=== PATIENT | male | born 1960 | race Caucasian/White ===

== ENCOUNTER 2018-01-22 02:56 | Emergency (ER) | payer SELFPAY ==
[~2018-01-22] VITALS: Ht 182.9 cm; Wt 145.5 kg
[2018-01-22 03:04] VITALS: Ht 182.9 cm; Wt 145.5 kg
[2018-01-22] MEDS ORDERED: [UNRECOGNIZED DRUG - OTHER] (03:08)
[2018-01-22] MEDS ORDERED: CATAPRES0.1 MG (03:08)
[2018-01-22] MEDS ORDERED: GLUCOPHAGE1000 MG PO (03:08)
[2018-01-22 03:37] LABS: BASOPHILS 0.4 % (0-2); EOSINOPHILS 4.8 % (0-7); HEMATOCRIT 43.7 % (42.0-54.0); HEMOGLOBIN 15.1 g/dL (13.5-17.5); IMMATURE GRANULOCYTES 0.2 % (0-5); LYMPHOCYTES 32.1 % (15-50); MCH 30.6 pg (26.0-34.0); MCHC 34.6 g/dL (31.0-37.0); MCV 88.5 fL (80.0-100.0); MEAN PLATELET VOLUME 10.1 fL (7.4-10.4); MONOCYTES 5.9 % (2-11); NEUTROPHILS 56.6 % (40-80); PLATELET COUNT 253 10x3/uL (130-400); RBC 4.94 10x6/uL (4.20-6.10); RDW 13.3 % (11.5-14.5)
[2018-01-22 03:52] LABS: ALBUMIN 3.3 g/dL (3.4-5.0); ALKALINE PHOSPHATASE 113 U/L (46-116); ALT (SGPT) 59 U/L (10-68); CALC OSMOLALITY 285 mosm/kg (275-300); CALCIUM 8.9 mg/dL (8.5-10.1); CARBON DIOXIDE 28.3 mmol/L (21.0-32.0); CHLORIDE - SERUM 100 mmol/L (98-107); CREATININE - SERUM 1.1 mg/dL (0.6-1.3); GLUCOSE 238 mg/dL (74-106); POTASSIUM - SERUM 3.7 mmol/L (3.5-5.1); PROTEIN - SERUM 7.9 g/dL (6.4-8.2); SODIUM 138 mmol/L (136-145); UREA NITROGEN 18 mg/dL (7-18); eGFR NON AFRICAN AMERICAN 73 mL/min (90-120)
[2018-01-22 03:54] LABS: CREATINE KINASE 59 UL (21-232); MAGNESIUM - SERUM 1.7 mg/dL (1.8-2.4)
[2018-01-22 03:55] LABS: APTT 27.8 SECONDS (22.8-39.4); INR 1.08 (0.85-1.17); PROTIME 13.5 SECONDS (11.6-15.0)
[2018-01-22 03:56] LABS: D-DIMER-QUANTITATIVE 0.64 ug/mLFEU (0.20-0.54)
[2018-01-22 03:59] LABS: TROPONIN-I < 0.017 ng/mL (0.000-0.060)
[2018-01-22] MEDS ORDERED: METOPROLOL TART25 MG PO (06:33)
[2018-01-22] MEDS ORDERED: CATAPRES0.1 MG PO (06:33)
[2018-01-22] MEDS ORDERED: ZOLOFT100 MG PO (06:33)
[2018-01-22] MEDS ORDERED: HYDRALAZINE HCL25 MG PO (06:33)
[2018-01-22 06:55] VITALS: BP 133/83
== END 2018-01-22 06:55 | disposition home or self-care (01) ==
LOC: D.ER 02:56
PROVIDERS: Family Medicine
DX: R51 Headache (principal); R74.8 Abnormal levels of other serum enzymes; E11.65 Type 2 diabetes mellitus with hyperglycemia; Z76.0 Encounter for issue of repeat prescription; R06.02 Shortness of breath; I10 Essential (primary) hypertension

== ENCOUNTER 2018-03-18 06:17 | Inpatient (IN) | payer SELFPAY ==
[2018-03-18] VITALS (14 sets, daily range): BP systolic 139–216; BP diastolic 71–133; BMI 46.8
[~2018-03-18] VITALS: Ht 182.9 cm; Wt 146.6 kg
--- NOTE | ~2018-03-18 | HEMODYNAMI ---
PATIENT:ELVA MOSS MEDICAL RECORD: [id number] : 56 LOCATION:[facility] D.2101 ADMISSION DATE: 03/18/18 Generatedon:03/20/201816:45 Patient name: ELVA MOSS Patient #: [id number] SSN: : Date of study: 03/20/2018 Page: Of Hemodynamic Procedure Report Patient Data Patient Demographics Procedure consent was obtained First Name: ELVA Gender: Male Last Name: ISA : 1960 [facility] Initial: GÓMEZ Age: 57 year(s) Patient #: [id number] Race: Unknown Additional ID: [id number] Contact details [address]: [address] [place] [address] State: [place] City: [place] Zip code: [address] Admission Admission Data Admission Date: 03/18/2018 Admission Time: 9:57 Room #: D.2101 Procedure Procedure Types Cath Procedure Diagnostic Procedure LHC LHC w/Coronaries FFR/IVUS Intra-Coronary IVUS Initial Sedation Charges Moderate Sedation up to 15 minutes PCI Procedure Coronary Stent Coronary Stent Initial x2 Procedure Description Procedure Date Procedure Date: 03/20/2018 Procedure Start Time: 16:20 Procedure End Time: 16:41 Procedure Staff Name Function Fiona Garcia RT Scrub Tab Archer RN Technical Administrative Assistant Isaac Gustafson MD Performing Physician Eugenio Galvan RN Nurse Violeta Scruggs RT Monitor Procedure Data Cath Procedure Fluoroscopy Diagnostic fluoroscopy Total fluoroscopy Time: 6.3 time: 6.3 min min Diagnostic fluoroscopy Total fluoroscopy dose: dose: 1498 mGy 1498 mGy Contrast Material Contrast Material Type Amount (ml) Isovue 300 106 Entry Location Entry Primary Successful Side Size Upsize Upsize Entry Closure Ferrer ccessful Closure Location (Fr) 1 (Fr) 2 (Fr) Remarks Device Remarks Radial Right 6 Fr Mechanical artery Short Compression Estimated blood loss: 5 ml Diagnostic catheters Device Type Used For End Catheter Placement DIAGNOSTIC 5FR Super Multi-vessel Torque RBL-TG ([id number]) Angiography Procedure Complications Cardiogenic Shock Procedure Medications Medication Administration Route Dosage 0.9% NaCl I.V. 100 ml/hr Oxygen etCO2 Nasal cannula 4 l/min Heparin Flush Bag added to field 2 bags (1000units/500ml NS) Lidocaine 2% added to field 20 Radial Cocktail added to field 1 syringe (Verapomil 2mg/Nitro 400mcg/Heparin 1500units) Versed I.V. 1 mg Fentanyl I.V. 50 mcg Radial Cocktail I.A. 1 syringe (Verapomil 2mg/Nitro 400mcg/Heparin 1500units) Versed I.V. 1 mg Heparin Bolus I.V. 4000 units Hemodynamics Rest Heart Rate: 92 (bpm) Pressure Samples Time Site Value (mmHg) Purpose Heart Use Rate(bpm) 16:23 LV 80/76,76 Snapshot 102 Snapshots Pre Cath Intra NCS Post Cath Vital Signs Time Heart Resp SPO2 etCO2 NIBP (mmHg) Rhythm Pain Sedation Rate (ipm) (%) (mmHg) Status Level (bpm) 16:12:46 85 35 91 37 153/105(129) NSR 0 (11) 10(A) , No pain 16:17:00 89 32 94 35.5 147/114(126) NSR 0 (11) 10(A) , No pain 16:21:53 89 30 92 27.2 149/116(134) NSR 0 (11) 10(A) , No pain 16:26:07 88 24 92 40.8 153/114(127) NSR 0 (11) 10(A) , No pain 16:30:23 83 26 92 44.6 151/111(132) NSR 0 (11) 10(A) , No pain 16:34:58 83 20 94 37 100/25(62) NSR 0 (11) 10(A) , No pain 16:39:51 84 23 94 18.1 144/106(123) NSR 0 (11) 10(A) , No pain Medications Time Medication Route Dose Verified Delivered Reason Not es Effectiveness by by 16:10:44 0.9% NaCl I.V. 100 Eugenio Eugenio Per physician ml/hr Cole Galvan RN RN 16:11:01 Oxygen etCO2 4 l/min Eugenio Eugenio Per physician Nasal Cole Galvan cannula JIM RN 16:11:10 Heparin Flush added 2 bags Eugenio Eugenio used for Bag to Loralison Galvan procedure (1000units/500ml field RN RN NS) 16:11:21 Lidocaine 2% added 20ml Eugenio Eugenio for local to vial Loralison Galvan anesthetic field RN RN 16:11:32 Radial Cocktail added 1 Eugenio Eugenio used for (Verapomil to syringe Lorigan Cole procedure 2mg/Nitro field RN RN 400mcg/Hepari 16:17:58 Versed I.V. 1 mg Eugenio Eugenio for sedation Cole Galvan RN RN 16:18:06 Fentanyl I.V. 50 mcg Eugenio Eugenio for sedation Cole Galvan RN RN 16:22:03 Radial Cocktail I.A. 1 Eugenio Isaac for (Verapomil syringe Cole Gustafson MD vasodilation 2mg/Nitro RN 400mcg/Hepari 16:22:13 Versed I.V. 1 mg Eugenio Eugenio for sedation Cole Galvan RN RN 16:32:32 Heparin Bolus I.V. 4000 Eugenio Eugenio for units Lorigan Cole anticoagulation RN trust manager Log Time Note 15:35:33 Tab Archer RN sent for patient. Start room use. 15:35:34 Time tracking: Regular hours (M-F 7:00 - 5:00) 15:35:38 Plan of Care:Hemodynamics will remain stable., Cardiac rhythm will remain stable., Comfort level will be maintained., Respiratory function will remain adequate., Patient/ family verbilizes understanding of procedure., Procedure tolerated without complication., Recovers from procedure without complications.. 16:05:39 Patient received from ED to CCL 2 Alert and oriented. Tansferred to table in Supine position. 16:05:40 Correct patient and procedure confirmed by team. 16:05:40 Warm blankets applied, and gavin hugger turned on for patient comfort. 16:05:42 Signed procedure consent form obtained from patient. 16:05:43 ECG and BP/O2 sat monitors applied to patient. 16:10:44 0.9% NaCl 100 ml/hr I.V. was administered by Eugenio Galvan RN; Per physician; 16:11:01 Oxygen 4 l/min etCO2 Nasal cannula was administered by Eugenio Galvan RN; Per physician; 16:11:10 Heparin Flush Bag (1000units/500ml NS) 2 bags added to field was administered by Eugenio Galvan RN; used for procedure; 16:11:21 Lidocaine 2% 20ml vial added to field was administered by Eugenio Galvan RN; for local anesthetic; 16:11:32 Radial Cocktail (Verapomil 2mg/Nitro 400mcg/Heparin 1500units) 1 syringe added to field was administered by Eugenio Galvan RN; used for procedure; 16:11:38 Vital chart was started 16:13:17 Baseline sample Acquired. 16:13:27 Rhythm: sinus tachycardia 16:13:29 Full Disclosure recording started 16:13:35 H&P Date Dictated: 03/20/2018 New H&P dictated by physician.. 16:13:36 Pre-procedure instructions explained to patient. 16:13:37 Pre-op teaching completed and patient verbalized understanding. 16:13:38 Family in waiting room. 16:13:39 Patient NPO since Midnight. 16:13:41 Is the patient allergic to Iodine/contrast media? No. 16:13:42 Was the patient premedicated? No 16:13:44 Is patient on blood thinner?Yes 16:13:47 ACC The patient was administered the following blood thiners within the last 24 hours: ACCPlavix 16:13:49 Patient diabetic? No. 16:13:51 Previous problem with sedation/anesthesia? No ? 16:13:52 Snore? Yes 16:13:53 Sleep apnea? Yes 16:13:54 Deviated septum? No 16:13:55 Opens mouth fully? No 16:13:57 Sticks out tongue? Yes 16:14:03 Airway obstruction? Yes ASTHMA 16:14:08 Dentures? No ? 16:14:12 Pre procedure: right dorsailis pedis pulse 2+ Normal; easily identifiable; not easily obliterated 16:14:14 Pre procedure: left dorsailis pedis pulse 2+ Normal; easily identifiable; not easily obliterated 16:14:16 Patient pain scale 0/10 ?. 16:14:21 IV patent on arrival in left forearm with 0.9% NaCl at [facility]. 16:14:23 Lab results completed and on chart. 16:14:26 Right Radial & Right Groin area was prepped with chlora-prep and draped in sterile fashion 16:14:27 Alarms reviewed by Galindo Villafuerte 16:14: Sharps counted by scrub and verified by R.N. 16::29 Final Timeout: patient, procedure, and site verified with staff and physician. All members of the team are in agreement. 16:: --------ALL STOP TIME OUT------ 16::29 Physician arrived 16:14:31 Right Radial & Right Groin site verified by team. 16:14:34 Physical assessment completed. ASA score P 2 - A patient with mild systemic disease as per Isaac Gustafson MD. 16:14:38 Sedation plan: IV Moderate Sedation Medication:Versed, Fentanyl 16:14:41 Use device set Radial Dx or PCI 16:14:42 ACIST Syringe (23976) opened to sterile field. 16:14:43 DIAGNOSTIC WIRE .035 260cm J wire (330128) opened to sterile field. 16:14:43 Bag Decanter (2002S) opened to sterile field. 16:14:43 Medline Cath Pack ([id number]) opened to sterile field. 16:14:44 ACIST Manifold (76009) opened to sterile field. 16:14:44 ACIST Hand Control (13941) opened to sterile field. 16:14:45 MBrace Wrist Support ([id number]) opened to sterile field. 16:14:45 Tegaderm 4 x 4 (1626W) opened to sterile field. 16:14:47 SHEATH 6FR Slender (79-9190) opened to sterile field. 16:17:58 Versed 1 mg I.V. was administered by Eugenio Galvan RN; for sedation; 16:18:06 Fentanyl 50 mcg I.V. was administered by Eugenio Galvan RN; for sedation; 16:20:35 Procedure started. 16:20:38 Zero performed for pressure channel P1 16:20:55 Local anesthetic to right radial artery with Lidocaine 2% by Isaac Gustafson MD.INITIAL ACCESS ONLY 16:21:00 A 6 Fr Short sheath was inserted into the Right Radial artery 16:21:48 A DIAGNOSTIC 5FR Super Torque RBL-TG ([id number]) was advanced over the wire and used for Multi-vessel Angiography. 16:22:03 Radial Cocktail (Verapomil 2mg/Nitro 400mcg/Heparin 1500units) 1 syringe I.A. was administered by Isaac Gustafson MD; for vasodilation; 16:22:13 Versed 1 mg I.V. was administered by Eugenio Galvan RN; for sedation; 16:23:45 LV hemodynamics recorded. 16:23:46 LV gram done using MCCABE 16:23:48 Injector settings: Ml/sec: 5, Volume: 15, 16:23:56 EF : 30 % 16:24:43 RCA angiography performed. 16:24:50 Injector settings: Ml/sec: 3, Volume: 6, 16:24:56 Catheter removed. 16:26:09 GUIDE 6FR XBLAD 3.5 catheter ([id number]) opened to sterile field. 16:26:34 6 Fr XBLAD 3.5 guide catheter was inserted over the wire 16:27:59 LCA angiography performed. 16:28:02 Injector settings: Ml/sec: 3, Volume: 6, 16:29:11 CHOICE PT Extra Support 182cm wire ([id number]) opened to sterile field. 16:29:12 INFLATOR Merit BasixCompak (AK3189) opened to sterile field. 16:30:19 CHOICE PT wire advanced. 16:30:20 Wire advanced across lesion. 16:30:21 IVUS catheter advanced over wire. 16:31:43 IVUS pass to LAD lesion performed. 16:31:47 IVUS catheter removed over wire. 16:32:32 Heparin Bolus 4000 units I.V. was administered by Eugenio Galvan RN; for anticoagulation; 16:32:49 Place stent Inflation Number: 1 A JILL RX 2.75 x 38 stent ([id number]) was prepped and advanced across the Prox LAD. The stent was deployed at 21 NELDA for 0:10 (min:sec). 16:34:22 Wire redirected to LCX. 16:34:34 Stent catheter was removed intact over wire. 16:35:43 Place stent Inflation Number: 1 A JILL RX 2.5 x 15 stent ([id number]) was prepped and advanced across the Mid CX. The stent was deployed at 17 NELDA for 0:10 (min:sec). 16:37:11 Stent catheter was removed intact over wire. 16:37:12 Wire removed. 16:37:13 Guide catheter removed. 16:37:19 TR BAND Large ([id number]) opened to sterile field. 16:38:52 Sheath removed intact; hemostasis achieved with Mechanical Compression to the Right Radial artery. 16:38:53 Procedure ended.(Physican Out) 16:39:02 Fluoroscopy time 06.30 minutes. 16:39:15 Fluoroscopy dose: 1498 mGy 16:39:15 Flurop Dose total: 1498 16:39:26 Contrast amount:Isovue 300 106ml. 16:39:56 TR band inflated with 10cc of air. 16:39:57 Insertion/operative site no bleeding no hematoma. 16:40:10 Post Procedure Pulses reassessed and unchanged 16:40:13 Post procedure rhythm: unchanged. 16:40:15 Estimated blood loss: 5 ml 16:40:17 Patient needs reinforcement of post procedure teaching. 16:40:17 Post procedure instruction explained to patient.Patient verbalizes understanding. 16:40:31 Procedure type changed to Cath procedure, Diagnostic procedure, LHC, LHC w/Coronaries, FFR/IVUS, Intra-Coronary IVUS Initial, Sedation Charges, Moderate Sedation up to 15 minutes, PCI procedure, Coronary Stent, Coronary Stent Initial x2 16:40:32 Procedure and supply charges have been captured, reviewed, submitted and are correct. 16:40:44 Procedure Complication : Cardiogenic Shock 16:40:52 See physician's report for complete and final results. 16:40:52 Vital chart was stopped 16:41:00 Report given to [facility]. 16:41:03 Patient transfered to [facility] with Stretcher. 16:41:04 Full Disclosure recording stopped 16:41:04 Procedure ended. 16:41:12 ACC-PCI Only Patient was given prescriptions, or instructed by Isaac Gusatfson MD to start/continue the following medications upon discharge: Plavix 16:41:13 End room use (Document Last) Intervention Summary Intervention Notes Time ActionType Lesion and Equipment Used Action# Pressure Duration Attributes 16:32:[address] Place stent Prox LAD JILL RX 2.75 x 1 21 00:10 38 stent ([id number]) 16:35:43 Place stent Mid CX JILL RX 2.5 x 1 17 00:10 15 stent ([id number]) Device Usage Item Name Manufacture Quantity Catalog Number Hospital Part Current M inimal Lot# / Charge Number Stock Stock Serial# Code ACIST Syringe Acist 1 81521 280691 184125 939238 2 0 (86695) Medical Systems Inc Medline Cath Medline 1 [id number] 375867 88088 606578 5 Pack ([id number]) Bag Decanter Microtek 1 2001S 091107 33948 598206 5 (2001S) Medical Inc. DIAGNOSTIC St [place] 1 131802 710736 950592 311575 3 0 WIRE .035 260cm J wire (929024) ACIST Hand Acist 1 40634 729001 832118 747150 5 Control Medical (58446) Systems Inc ACIST Manifold Acist 1 25142 552820 919336 521037 5 (64133) Medical Systems Inc Tegaderm 4 x 4 3M 1 1626W 322791 529126 990126 5 (1626W) MBrace Wrist Advanced 1 140-0250-00 700044 49484 127348 5 Support Vascular ([id number]) Dynamics SHEATH 6FR Terumo 1 [id number] 156464 646560 533871 5 Slender (80-1060) DIAGNOSTIC 5FR Cardinal 1 [id number] 814881 123417 5 Super Torque Health RBL-TG ([id number]) GUIDE 6FR Cardinal 1 [id number] 488772 379200 413204 1 0 XBLAD 3.5 Health catheter (69922609) CHOICE PT Freeborn 1 [id number] 205300 319579 646478 5 Extra Support Scientific 182cm wire ([id number]) INFLATOR Merit Merit 1 SC3965 924287 058861 205122 1 5 ON DEMAND Microelectronics (LM5330) JILL RX 2.75 x Medtronic 1 [id number] 139024 4857893 599807 5 [id number] 38 stent ([id number]) JILL RX 2.5 x Medtronic 1 [id number] 676259 4526228 459548 5 [id number] 15 stent ([id number]) TR BAND Large Terumo 1 [id number] 135931 163320 173674 4 0 ([id number]) Signature Audit [place] Stage Time Signature Unsigned Intra-Procedure 03/20/2018 Violeta Scruggs 4:45:20 PM RT(R) Signatures Monitor : Violeta Scruggs RT Signature : Date : Time : [facility] [address] [place] [address]
--- NOTE | ~2018-03-18 | HEMODYNAMI ---
PATIENT:ELVA MOSS MEDICAL RECORD: [id number] : 56 LOCATION:[facility] D.2102 ADMISSION DATE: 03/18/18 Generatedon:03/21/201812:47 Patient name: ELVA MOSS Patient #: [id number] SSN: : Date of study: 03/21/2018 Page: Of Hemodynamic Procedure Report Patient Data Patient Demographics Procedure consent was obtained First Name: ELVA Gender: Male Last Name: ISA : 1960 [facility] Initial: GÓMEZ Age: 57 year(s) Patient #: [id number] Race: Unknown Additional ID: [id number] Contact details Address: [address] [place] [address] State: [place] City: [place] Zip code: [address] Past Medical History Allergies: No known allergies Admission Admission Data Admission Date: 03/18/2018 Admission Time: 9:57 Room #: D.2102 Procedure Procedure Types Cath Procedure PCI Procedure Coronary Stent Coronary Stent Initial Procedure Description Procedure Date Procedure Date: 03/21/2018 Procedure Start Time: 12:36 Procedure End Time: 12:45 Procedure Staff Name Function Isaac Gustafson MD Performing Physician Eugenio Galvan RN Nurse Eliseo Zamora RT Monitor Eliseo Zamora RT Scrub Procedure Data Cath Procedure Fluoroscopy Diagnostic fluoroscopy Total fluoroscopy Time: 2.3 time: 2.3 min min Diagnostic fluoroscopy Total fluoroscopy dose: 491 dose: 491 mGy mGy Contrast Material Contrast Material Type Amount (ml) Isovue 300 36 Entry Location Entry Primary Successful Side Size Upsize Upsize Entry Closure Ferrer ccessful Closure Location (Fr) 1 (Fr) 2 (Fr) Remarks Device Remarks Radial Right 6 Fr Mechanical artery Short Compression Procedure Complications No complications Procedure Medications Medication Administration Route Dosage 0.9% NaCl I.V. 100 ml/hr Oxygen etCO2 Nasal cannula 4 l/min Heparin Flush Bag added to field 2 bags (1000units/500ml NS) Lidocaine 2% added to field 20 Radial Cocktail added to field 1 syringe (Verapomil 2mg/Nitro 400mcg/Heparin 1500units) Versed I.V. 2 mg Fentanyl I.V. 100 mcg Radial Cocktail I.A. 1 syringe (Verapomil 2mg/Nitro 400mcg/Heparin 1500units) Heparin Bolus I.V. 4000 units Hemodynamics Rest Heart Rate: 82 (bpm) Snapshots Pre Cath Intra NCS Post Cath Vital Signs Time Heart Resp SPO2 etCO2 NIBP (mmHg) Rhythm Pain Sedation Rate (ipm) (%) (mmHg) Status Level (bpm) 12:08:49 82 32 93 22.6 154/103(123) NSR 0 (11) 10(A) , No pain 12:13:06 83 23 85 15.1 154/120(137) NSR 0 (11) 10(A) , No pain 12:17:24 88 23 82 0 149/121(134) NSR 0 (11) 10(A) , No pain 12:21:40 83 30 94 36.3 152/120(138) NSR 0 (11) 10(A) , No pain 12:26:01 83 26 94 31.7 159/138(147) NSR 0 (11) 10(A) , No pain 12:30:21 81 26 94 40 160/116(133) NSR 0 (11) 10(A) , No pain 12:34:41 84 20 84 0.7 159/116(141) NSR 0 (11) 9(A) , No pain 12:38:59 85 26 93 21.9 147/106(127) NSR 0 (11) 9(A) , No pain 12:43:15 83 24 92 12 166/108(120) NSR 0 (11) 9(A) , No pain Medications Time Medication Route Dose Verified Delivered Reason Not es Effectiveness by by 12:09:19 0.9% NaCl I.V. 100 Eugenio Eugenio Per physician ml/hr Cole Galvan RN RN 12:09:32 Oxygen etCO2 4 l/min Eugenio Eugenio Per physician Nasal Cole Galvan cannula RN RN 12:09:43 Heparin Flush added 2 bags Eugenio Eugenio used for Bag to Cole Galvan procedure (1000units/500ml [facility] RN RN NS) 12:09:56 Lidocaine 2% added 20ml Eugenio Eugenio for local to vial Lorigan Lorigan anesthetic field FERNANDEZ RN 12:29:22 Radial Cocktail added 1 Eugenio Eugenio used for (Verapomil to syringe Cole Galvan procedure 2mg/Nitro field FERNANDEZ RN 400mcg/Heparin 1500units) 12:30:53 Versed I.V. 2 mg Eugenio Eugenio for sedation Cole Galvan RN RN 12:31:00 Fentanyl I.V. 100 mcg Eugenio Eugenio for sedation Cole Galvan RN RN 12:37:21 Radial Cocktail I.A. 1 Eugenio Isaac for (Verapomil syringe Cole Gustafson MD vasodilation 2mg/Nitro RN 400mcg/Heparin 1500units) 12:39:30 Heparin Bolus I.V. 4000 Eugenio Eugenio for units Cole Galvan anticoagulation RN [employer] law clerk Log Time Note 11:40:24 Eliseo Zamora RT(R) sent for patient. Start room use. 11:55:17 Time tracking: Regular hours (M-F 7:00 - 5:00) 11:55:21 Plan of Care:Hemodynamics will remain stable., Cardiac rhythm will remain stable., Comfort level will be maintained., Respiratory function will remain adequate., Patient/ family verbilizes understanding of procedure., Procedure tolerated without complication., Recovers from procedure without complications.. 12:05:03 Patient received from Med II to CCL 2 Alert and oriented. Tansferred to table in Supine position. 12:05:05 Warm blankets applied, and gavin hugger turned on for patient comfort. 12:05:05 Correct patient and procedure confirmed by team. 12:05:07 Signed procedure consent form obtained from patient. 12:05:08 ECG and BP/O2 sat monitors applied to patient. 12:07:44 Vital chart was started 12:07:45 Baseline sample Acquired. 12:07:48 Rhythm: sinus rhythm 12:07:49 Full Disclosure recording started 12:08:03 H&P Date Dictated: 03/19/2018 Within 30 days and on chart.. 12:08:05 Pre-procedure instructions explained to patient. 12:08:05 Pre-op teaching completed and patient verbalized understanding. 12:08:11 Family unavailable. 12:08:13 Patient NPO since Midnight. 12:08:19 Patient allergic to No known allergies 12:08:21 Is the patient allergic to Iodine/contrast media? No. 12:08:35 Is patient on blood thinner?Yes 12:08:38 ACC The patient was administered the following blood thiners within the last 24 hours: ACCPlavix 12:09:19 0.9% NaCl 100 ml/hr I.V. was administered by Eugenio Galvan RN; Per physician; 12:09:32 Oxygen 4 l/min etCO2 Nasal cannula was administered by Eugenio Galvan RN; Per physician; 12:09:43 Heparin Flush Bag (1000units/500ml NS) 2 bags added to field was administered by Eugenio Galvan RN; used for procedure; 12:09:52 Patient diabetic? No. 12:09:56 Lidocaine 2% 20ml vial added to field was administered by Eugenio Galvan RN; for local anesthetic; 12:10:20 If diabetic: On Metformin? No 12:10:21 ----Pre-sedation anethsthesia assessment.---- 12:10:23 Previous problem with sedation/anesthesia? No ? 12:10:24 Snore? Yes 12:10:25 Sleep apnea? Yes 12:10:27 Deviated septum? No 12:10:28 Opens mouth fully? Yes 12:10:29 Sticks out tongue? Yes 12:10:37 Airway obstruction? Yes ASTHMA\ 12:10:41 Dentures? No ? 12:10:46 Pre procedure: right dorsailis pedis pulse 2+ Normal; easily identifiable; not easily obliterated 12:10:49 Modified Emir's test Ulnar < 7 seconds 12:10:57 Patient pain scale 0/10 ?. 12:11:11 IV patent on arrival in left antecubital with 0.9% NaCl at 10ml/hr. 12:11:17 Lab results completed and on chart. 12:11:20 Right Radial & Right Groin area was prepped with chlora-prep and draped in sterile fashion 12:11:22 Alarms reviewed by RConstantin N. 12:11:22 Sharps counted by scrub and verified by R.N. 12:28:29 --------ALL STOP TIME OUT------ 12:28:30 Final Timeout: patient, procedure, and site verified with staff and physician. Fire safety check completed. All members of the team are in agreement. 12:28:31 Right Radial & Right Groin site verified by team. 12:28:35 Physical assessment completed. ASA score P 2 - A patient with mild systemic disease as per Isaac Gustafson MD. 12:28:38 Sedation plan: IV Moderate Sedation Medication:Versed, Fentanyl 12:29:22 Radial Cocktail (Verapomil 2mg/Nitro 400mcg/Heparin 1500units) 1 syringe added to field was administered by Eugenio Galvan RN; used for procedure; 12:30:53 Versed 2 mg I.V. was administered by Eugenio Galvan RN; for sedation; 12:31:00 Fentanyl 100 mcg I.V. was administered by Eugenio Galvan RN; for sedation; 12:31:12 Zero performed for pressure channel P1 12:31:21 Use device set Radial Dx or PCI 12:31:22 Medline Cath Pack ([id number]) opened to sterile field. 12:31:23 ACIST Syringe (19516) opened to sterile field. 12:31:23 Bag Decanter (2002S) opened to sterile field. 12:31:23 DIAGNOSTIC WIRE .035 260cm J wire (039038) opened to sterile field. 12:31:24 ACIST Hand Control (01760) opened to sterile field. 12:31:24 ACIST Manifold (50563) opened to sterile field. 12:31:25 Tegaderm 4 x 4 (1626W) opened to sterile field. 12:31:25 MBrace Wrist Support ([id number]) opened to sterile field. 12:31:26 NEEDLE Cook 21G 4cm Radial (M63729) opened to sterile field. 12:31:27 TR BAND Standard ([id number]) opened to sterile field. 12:31:28 SHEATH 6FR Slender (801060) opened to sterile field. 12:35:52 Procedure started. 12:36:11 Local anesthetic to right radial artery with Lidocaine 2% by Isaac Gustafson MD.INITIAL ACCESS ONLY 12:36:22 A 6 Fr Short sheath was inserted into the Right Radial artery 12:37:21 Radial Cocktail (Verapomil 2mg/Nitro 400mcg/Heparin 1500units) 1 syringe I.A. was administered by Isaac Gustafson MD; for vasodilation; 12:37:25 GUIDE 6FR AR 2.0 catheter ([id number]) opened to sterile field. 12:37:25 CHOICE PT Extra Support 182cm wire ([id number]) opened to sterile field. 12:37:26 INFLATOR Merit José MiguelCompak (EL9738) opened to sterile field. 12:37:36 6 Fr AR 2 guide catheter was inserted over the wire 12:37:40 CPTES wire advanced. 12:39:30 Heparin Bolus 4000 units I.V. was administered by Eugenio Galvan RN; for anticoagulation; 12:42:34 Place stent Inflation Number: 1 A JILL RX 3.0 x 18 stent ([id number]) was prepped and advanced across the Mid RCA. The stent was deployed at 17 NELDA for 0:10 (min:sec). 12:43:24 Stent catheter was removed intact over wire. 12:43:25 Wire removed. 12:43:28 Guide catheter removed. 12:43:53 Contrast amount:Isovue 300 36ml. 12:43:59 Sheath removed intact; hemostasis achieved with Mechanical Compression to the Right Radial artery. 12:44:01 Procedure ended.(Physican Out) 12:44:09 Fluoroscopy time 02.30 minutes. 12:44:14 Flurop Dose total: 491 12:44:15 Fluoroscopy dose: 491 mGy 12:44:16 Sharps counted by scrub and verified by R.N. 12:44:18 TR band inflated with 12cc of air. 12:44:40 Post right radial artery:stable 12:44:42 Post Procedure Pulses reassessed and unchanged 12:44:48 Post procedure rhythm: sinus rhythm 12:44:59 Post procedure instruction explained to patient.Patient verbalizes understanding. 12:45:02 Procedure and supply charges have been captured, reviewed, submitted and are correct. 12:45:14 Procedure Complication : No complications 12:45:17 Vital chart was stopped 12:45:17 See physician's report for complete and final results. 12:45:19 Report given to PCU. 12:45:32 Patient transfered to PCU with Bed. 12:45:34 Procedure ended. 12:45:34 Full Disclosure recording stopped 12:45:42 ACC-PCI Only Patient was given prescriptions, or instructed by Isaac Gustafson MD to start/continue the following medications upon discharge: Plavix 12:45:43 End room use (Document Last) Intervention Summary Intervention Notes Time ActionType Lesion and Equipment Used Action# Pressure Duration Attributes 12:42:34 Place stent Mid RCA JILL RX 3.0 x 1 17 00:10 18 stent ([id number]) Device Usage Item Name Manufacture Quantity Catalog Number Hospital Part Current M inimal Lot# / Charge Number Stock Stock Serial# Code Medline Cath Medline 1 [id number] 12983 767490 5 Pack ([id number]) ACIST Syringe Acist 1 41358 220655 479416 697712 2 0 (77899) Medical Systems Inc Bag Decanter Microtek 1 2001S 691126 87773 799388 5 (2001S) Medical Inc. DIAGNOSTIC [facility] [place] 1 450290 163436 957402 050383 3 0 WIRE .035 260cm J wire (202011) ACIST Hand Acist 1 60340 133669 547864 080512 5 Control Medical (12127) Systems Inc ACIST Manifold Acist 1 19875 453671 791347 938464 5 (79649) Medical Systems Inc Tegaderm 4 x 4 3M 1 1626W 789194 753389 645284 5 (1626W) MBrace Wrist Advanced 1 140-0250-00 118812 45137 299070 5 Support Vascular ([id number]) Dynamics NEEDLE Cook Union Medical 1 M14705 315509 871231 572754 5 21G 4cm Radial (R82246) TR BAND Terumo 1 [id number] 318441 389812 037239 4 0 Standard ([id number]) SHEATH 6FR Terumo 1 [id number] 707602 951024 579100 5 Slender (80-1060) GUIDE 6FR AR Medtronic 1 [id number] 104405 40552 031631 1 2.0 catheter ([id number]) CHOICE PT [place] 1 [id number] 623657 431767 371675 5 Extra Support Scientific 182cm wire ([id number]) INFLATOR Merit Merit 1 SA9287 719795 580004 436978 1 5 Clementia PharmaceuticalstxIlink Systems [facility] (IJ6619) JILL RX 3.0 x Medtronic 1 [id number] 154679 1239082 885900 5 [id number] 18 stent ([id number]) Signature Audit [place] Stage Time Signature Unsigned Intra-Procedure 03/21/2018 Eliseo TIRADO(Josh) 12:47:25 PM Signatures Monitor : Eliseo Zamora RT Signature : Date : Time : [place] [id number] [facility]901
[~2018-03-18 06:17] MED LIST: CATAPRES0.1 MG; CATAPRES0.1 MG PO; GLUCOPHAGE1000 MG PO; HYDRALAZINE HCL25 MG PO; METOPROLOL TART25 MG PO; ZOLOFT100 MG PO; [UNRECOGNIZED DRUG - OTHER]
[2018-03-18 06:46] LABS: ALBUMIN 3.3 g/dL (3.4-5.0); ALKALINE PHOSPHATASE 127 U/L (46-116); ALT (SGPT) 76 U/L (10-68); BILIRUBIN - TOTAL 0.46 mg/dL (0.2-1.3); CALC OSMOLALITY 283 mosm/kg (275-300); CALCIUM 8.8 mg/dL (8.5-10.1); CARBON DIOXIDE 27.4 mmol/L (21.0-32.0); CHLORIDE - SERUM 102 mmol/L (98-107); CREATININE - SERUM 1.4 mg/dL (0.6-1.3); POTASSIUM - SERUM 4.6 mmol/L (3.5-5.1); PROTEIN - SERUM 7.4 g/dL (6.4-8.2); SODIUM 139 mmol/L (136-145); UREA NITROGEN 21 mg/dL (7-18); eGFR NON AFRICAN AMERICAN 55 mL/min (90-120)
[2018-03-18 06:48] LABS: GLUCOSE 158 mg/dL (74-106)
[2018-03-18 06:57] LABS: CKMB 4.9 U/L (0.0-3.6); CREATINE KINASE 189 UL (21-232); PRO BNP 2815 pg/mL (0-125); TROPONIN-I 0.038 ng/mL (0.000-0.060)
[2018-03-18] MEDS ORDERED: VITAMIN D5000 UNIT PO (06:58)
[2018-03-18] MEDS ORDERED: SYNTHROID50 MCG PO (06:58)
[2018-03-18] MEDS ORDERED: VENTOLIN HFA18 GM INJ (06:59)
[2018-03-18] MEDS ORDERED: ALBUTEROL1.25 MG/3 INH (06:59)
[2018-03-18] MEDS ORDERED: BAYER CHEWABLE81 MG PO (06:59)
[2018-03-18] MEDS ORDERED: LIPITOR20 MG PO (07:00)
[2018-03-18] MEDS ORDERED: ZESTRIL40 MG PO (07:00)
[2018-03-18 07:02] LABS: APTT 27.5 SECONDS (22.8-39.4); INR 1.2 (0.85-1.17); PROTIME 14.6 SECONDS (11.6-15.0)
--- NOTE | 2018-03-18 07:03 | NUR ---
REPORT GIVEN TO JIM BETANCOURT
[2018-03-18 07:22] LABS: KETONE - SERUM NEGATIVE (NEGATIVE)
[2018-03-18 07:39] LABS: MAGNESIUM - SERUM 2.1 mg/dL (1.8-2.4)
--- NOTE | 2018-03-18 07:40 | NUR ---
VERBAL ORDER FROM DR. LEES TO INSERT FITCH CATHETER FOR STRICT I & O ON PT. PATIENT REFUSED FITCH CATHETER. DR. LEES NOTIFIED.
[2018-03-18 07:43] LABS: BASOPHILS 0.6 % (0-2); EOSINOPHILS 2.4 % (0-7); HEMATOCRIT 46.5 % (42.0-54.0); HEMOGLOBIN 15.1 g/dL (13.5-17.5); IMMATURE GRANULOCYTES 0.2 % (0-5); LYMPHOCYTES 25.2 % (15-50); MCH 29.4 pg (26.0-34.0); MCHC 32.5 g/dL (31.0-37.0); MCV 90.5 fL (80.0-100.0); MEAN PLATELET VOLUME 10.4 fL (7.4-10.4); MONOCYTES 8.2 % (2-11); NEUTROPHILS 63.4 % (40-80); RBC 5.14 10x6/uL (4.20-6.10); RDW 14.6 % (11.5-14.5); WBC 12.2 10x3/uL (4.8-10.8)
[2018-03-18 07:52] LABS: PLATELET COUNT 368 10x3/uL (130-400)
[2018-03-18 08:01] LABS: THYROID STIMULATING HORMONE 4.99 uIU/mL (0.36-3.74)
--- NOTE | 2018-03-18 11:12 | NUR ---
PT TRANSPORTED VIA STRETCHER TO CT.
--- NOTE | 2018-03-18 11:30 | NUR ---
PT RETURNED FROM CT.
--- NOTE | 2018-03-18 11:34 | NUR ---
URINE COLLECTED BY NURSE AND SENT TO LAB.
[2018-03-18 12:17] LABS: COLOR COLORLESS (YELLOW)
[2018-03-18 12:18] LABS: APPEARANCE CLEAR (CLEAR); BILIRUBIN NEGATIVE (NEGATIVE); GLUCOSE NEGATIVE (NEGATIVE); KETONE NEGATIVE (NEGATIVE); NITRITE NEGATIVE (NEGATIVE); PROTEIN NEGATIVE (NEGATIVE); UROBILINOGEN NORMAL (NORMAL)
--- NOTE | 2018-03-18 16:49 | NUR ---
PT ARRIVED AT 1515 VIA WC FROM ER. IV GTT OF BUMEX IS INFUSING AT 5/HR. O2 AT 2L PER NC. SEE ASSESSMENT FOR FURTHER EVAL.
--- NOTE | 2018-03-18 19:00 | NUR ---
ALERT AWAKE ORIENTED X3. DENIES PAIN OR ANY NEEDS. IV IN L AC WITH BUMEX INFUSING AT 5ML/HR. EMPTIED URINAL'S OF 1500CC PALE YELLOW URINE. BED IS LOW WITH CALL LIGHT IN REACH.
--- NOTE | 2018-03-18 22:30 | NUR ---
GAVE DIABETIC SNACK OF ISIAH CRACKERS, PEANUT BUTTER AND MILK.
[2018-03-19 04:55] VITALS: BP 143/102
[2018-03-19 05:32] LABS: BASOPHILS 0.5 % (0-2); EOSINOPHILS 3.5 % (0-7); HEMATOCRIT 43.7 % (42.0-54.0); HEMOGLOBIN 13.8 g/dL (13.5-17.5); IMMATURE GRANULOCYTES 0.2 % (0-5); LYMPHOCYTES 19.9 % (15-50); MCH 28.8 pg (26.0-34.0); MCHC 31.6 g/dL (31.0-37.0); MCV 91.2 fL (80.0-100.0); MEAN PLATELET VOLUME 10.2 fL (7.4-10.4); MONOCYTES 8.2 % (2-11); NEUTROPHILS 67.7 % (40-80); PLATELET COUNT 352 10x3/uL (130-400); RBC 4.79 10x6/uL (4.20-6.10); RDW 14.5 % (11.5-14.5); WBC 10.2 10x3/uL (4.8-10.8)
[2018-03-19 05:55] LABS: ALBUMIN 3.2 g/dL (3.4-5.0); BILIRUBIN - TOTAL 0.49 mg/dL (0.2-1.3); CALCIUM 8.3 mg/dL (8.5-10.1); CARBON DIOXIDE 31.5 mmol/L (21.0-32.0); CREATININE - SERUM 1.4 mg/dL (0.6-1.3); MAGNESIUM - SERUM 1.9 mg/dL (1.8-2.4); PHOSPHOROUS 5.4 mg/dL (2.5-4.9); TROPONIN-I 0.03 ng/mL (0.000-0.060)
[2018-03-19 06:04] LABS: ANION GAP 12.7 mmol/L (8-16); POTASSIUM - SERUM 3.2 mmol/L (3.5-5.1)
--- NOTE | 2018-03-19 06:20 | NUR ---
ADMIN SCHED MEDS. WHILE HE WAS ASLEEP I OBSERVED SEVERAL EPISODES OF SLEEP APNEA. STATED HE IS AWARE OF THIS.
--- NOTE | 2018-03-19 07:00 | NUR ---
RECEIVED REPORT. ASSUMED CARE OF PATIENT. SITTING UP TO SIDE FO THE BED. RESP EVEN AND UNLABORED. PSORIASIS TO LOWER EXTREMITIES AND ELBOWS NOTED. NO DISTRESS. FRESH ICE WATER PROVIDED.
[2018-03-19 08:33] VITALS: BP 140/96
--- NOTE | 2018-03-19 11:20 | NUR ---
FSBS 147. NO INSULIN REQUIRED PER SLIDING SCALE. NO DISTRESS.
[2018-03-19 12:20] VITALS: BP 141/76
--- NOTE | 2018-03-19 13:12 | NUR ---
THIS PRIVATE DETECTIVE WENT TO PATIENT TO ADMINISTER HI-DOSE PLAVIX. PATIENT STATED HE NEEDS TO THINK ABOUT HAVING THAT HEART CATH DONE. PATIENT REFUSED PLAVIX AND STATES HE DOES NOT WANT ANYTHING TO DO WITH THE HEART CATH PROCEDURE UNTIL HE HAS HAD TIME TO THINK ABOUT. PLAVIX RETURNED TO THE [facility]. CONSENTS ARE ON THE CHART BUT NOT SIGNED. FLU SWAB COLLECTED FROM PATIENT AT THIS TIME.
--- NOTE | 2018-03-19 13:27 | NUR ---
MEDICATED FOR K+3.2 AT THIS TIME.
[2018-03-19 15:18] VITALS: BP 146/71
--- NOTE | 2018-03-19 16:08 | NUR ---
FSBS 125. NO INSULIN PER SLIDING SCALE.
--- NOTE | 2018-03-19 16:45 | NUR ---
REFUSED SCD'S PER MORALES/RN
--- NOTE | 2018-03-19 17:30 | NUR ---
PATIENT SITTING TO SIDE OF BED. REQUESTED 2ND MEAL TRAY. MEAL TRAY ORDERED FROM DIETARY. NO DISTRESS. CALL LIGHT WITHIN REACH.
--- NOTE | 2018-03-19 19:50 | NUR ---
INITIAL ASSESSMENT COMPLETED - PT A/0 X4, AT BEDISDE. PT SOB WITH SHALLOW BREATHS. 02 ON 2L VIA NC. VSS. NO PAIN OR DISCOMFORT NOTED AT THIS TIME. WCTM AND FOLLOW POC. CL IN REACH, SR UP X2, BED IN LOW POSITION.
[2018-03-19 20:00] VITALS: BP 115/96
[2018-03-20] VITALS: BP 135/85
[2018-03-20 04:00] VITALS: BP 151/96
--- NOTE | 2018-03-20 04:28 | NUR ---
RESUMING PT CARE - PT RESTING IN BED WITH EYES CLOSED. RR EVEN AND UL, NO S/S OF DISTRESS. BUMEX DRIP INFUSING AT 5ML/HR INTO L AC. NO NEEDS NOTED AT THIS TIME. VSS. CL IN REACH, SR UPX2, BED IN LOWEST POSITION. WILL CONTINUE TO ASSESS NEEDS.
[2018-03-20 04:42] LABS: BASOPHILS 0.3 % (0-2); EOSINOPHILS 2.5 % (0-7); HEMATOCRIT 44.8 % (42.0-54.0); HEMOGLOBIN 14.1 g/dL (13.5-17.5); IMMATURE GRANULOCYTES 0.1 % (0-5); LYMPHOCYTES 23.5 % (15-50); MCHC 31.5 g/dL (31.0-37.0); MEAN PLATELET VOLUME 10.1 fL (7.4-10.4); MONOCYTES 9.7 % (2-11); NEUTROPHILS 63.9 % (40-80); PLATELET COUNT 323 10x3/uL (130-400); RBC 4.87 10x6/uL (4.20-6.10); RDW 14.4 % (11.5-14.5); WBC 10.1 10x3/uL (4.8-10.8)
[2018-03-20 05:02] LABS: ANION GAP 9.8 mmol/L (8-16); CALCIUM 8.8 mg/dL (8.5-10.1); CARBON DIOXIDE 37.3 mmol/L (21.0-32.0); CREATININE - SERUM 1.5 mg/dL (0.6-1.3); POTASSIUM - SERUM 3.1 mmol/L (3.5-5.1)
--- NOTE | 2018-03-20 07:51 | NUR ---
RESUMING PT CARE, PT LAYING IN BED, DR AT BEDSIDE ASSESSING PT. CALL LIGHT IN REACH, WILL CONTINUE TO MONITOR AND FOLLOW PLAN OF CARE.
--- NOTE | 2018-03-20 07:53 | NUR ---
PT LAYING IN BED WITH EYES CLOSED, RESPIRATIONS EVEN AND UNLABORED. CALL LIGHT IN REACH, WILL CONTINUE TO MONITOR AND FOLLOW PLAN OF CARE.
[2018-03-20 08:58] VITALS: BP 170/104
--- NOTE | 2018-03-20 10:49 | NUR ---
RESTING QUIETLY. NO APPARENT DISTRESS. WILL CONTINUE TO MONITOR.
[2018-03-20 11:55] VITALS: BP 145/80
[2018-03-20 15:55] VITALS: BP 137/93
--- NOTE | 2018-03-20 19:45 | NUR ---
INITIAL ASSESSMENT COMPLETED - NO C/O PAIN OR DISCOMFORT. A/0X4, SLIGHTLY LETHARGIC PT IS 2 HOURS POST CATH. TR BAND FULLY INFLATED ON R WRIST. PULLED 3 ML OF AIR OUT, WILL RECHECK IN 30 MIN. RR EVEN AND UL, NO S/S OF DISTRESS. WCTM AND FOLLOW POC. SR UP X2, CL IN REACH, BED IN LOWEST POSITION.
[2018-03-20 20:00] VITALS: BP 153/102
--- NOTE | 2018-03-20 20:30 | NUR ---
NO BLEEDING NOTED AROUND R RADIAL SITE WHERE CATH WAS INSERTED. RELEASED 3 MORE ML OF AIR, WILL RECHECK SITE IN 30 MIN. NO NEEDS NOTED AT THIS TIME. EDUCATED PT THAT HE WILL BE NPO AFTER MIDNIGHT. PT VERBALIZED UNDERSTANDING. CL IN REACH, SR UPX2, BED IN LOWEST POSITION.
--- NOTE | 2018-03-20 23:06 | NUR ---
TR BAND ON, NO BLEEDING NOTED AT R RADIAL SITE WHERE CATH WAS INSERTED. CL IN REACH, SR UPX2.
[2018-03-21] VITALS: BP 141/98
[2018-03-21 04:00] VITALS: BP 164/113
--- NOTE | 2018-03-21 04:31 | NUR ---
TR BAND HAS BEEN COMPLETED DEFLATED AT THIS POINT - NO EXCESSIVE BLEEDING NOTED. PT RESTING IN BED COMFORTABLY ON 2L OF 02 VIA NC. NO NEEDS NOTED AT THIS TIME. WILL CONTINUE TO ASSESS. CL IN REACH, BED IN LOWEST POSITION, SR UP X2. NPO STATUS MAINTAINED.
[2018-03-21 06:06] LABS: ANION GAP 8.8 mmol/L (8-16); CALCIUM 8.8 mg/dL (8.5-10.1); CARBON DIOXIDE 36.4 mmol/L (21.0-32.0); CREATININE - SERUM 1.3 mg/dL (0.6-1.3); POTASSIUM - SERUM 3.2 mmol/L (3.5-5.1)
[2018-03-21 06:14] LABS: BASOPHILS 0.3 % (0-2); EOSINOPHILS 2.7 % (0-7); HEMATOCRIT 44.6 % (42.0-54.0); IMMATURE GRANULOCYTES 0.1 % (0-5); LYMPHOCYTES 18.3 % (15-50); MCH 28.8 pg (26.0-34.0); MCHC 31.4 g/dL (31.0-37.0); MCV 91.8 fL (80.0-100.0); MEAN PLATELET VOLUME 10.2 fL (7.4-10.4); MONOCYTES 7.3 % (2-11); NEUTROPHILS 71.3 % (40-80); PLATELET COUNT 296 10x3/uL (130-400); RBC 4.86 10x6/uL (4.20-6.10); RDW 14.4 % (11.5-14.5); WBC 11.8 10x3/uL (4.8-10.8)
--- NOTE | 2018-03-21 07:20 | NUR ---
ASSESSMENT DONE. DENIES NEEDS
[2018-03-21 07:44] VITALS: Ht 182.9 cm; Wt 146.6 kg
[2018-03-21 08:02] VITALS: BP 198/98
[2018-03-21 11:25] VITALS: BP 151/98
--- NOTE | 2018-03-21 11:54 | NUR ---
RESTING QUIETLY NAD NOTED
--- NOTE | 2018-03-21 12:00 | NUR ---
TO COMBAT CONTROL MANAGER PER BED
[2018-03-21 15:32] VITALS: BP 140/99
--- NOTE | 2018-03-21 18:09 | NUR ---
WITHOUT CHANGES OR DISTRESS NOTED AT THIS TIME.DENIES NEEDS
--- NOTE | 2018-03-21 19:45 | NUR ---
RESUMING PT CARE. PT IS ALERT LAYING IN BED WITH NO C/O VOICED. PT HAS A IV IN THE LEFT AC. PT IS ON 2 LITERS OF O2. BED IN LOW POSITION WITH CALL LIGHT IN REACH. WILL CONTINUE TO MONITOR PT AND FOLLOW PLAN OF CARE.
[2018-03-21 20:00] VITALS: BP 125/85
[2018-03-22] VITALS: BP 122/60
[2018-03-22 04:00] VITALS: BP 168/92
--- NOTE | 2018-03-22 04:18 | NUR ---
PT LAYING IN BED WITH EYES CLOSED RESTING COMFORTABLY. BED IN LOW POSITION WITH CALL LIGHT IN REACH. WILL CONTINUE TO MONITOR PT AND FOLLOW PLAN OF CARE.
--- NOTE | 2018-03-22 06:27 | NUR ---
PT BLOOD SUGAR AT 2100 WAS 158. PT STATES HE DID NOT WANT TO BE TREATED UNLESS BLOOD SUGAR IS OVER 200.
[2018-03-22 06:41] LABS: ANION GAP 12.7 mmol/L (8-16); CALCIUM 8.7 mg/dL (8.5-10.1); CARBON DIOXIDE 33.5 mmol/L (21.0-32.0); CREATININE - SERUM 1.3 mg/dL (0.6-1.3); MAGNESIUM - SERUM 1.9 mg/dL (1.8-2.4); PHOSPHOROUS 3.2 mg/dL (2.5-4.9); POTASSIUM - SERUM 3.2 mmol/L (3.5-5.1)
[2018-03-22 06:49] LABS: BASOPHILS 0.3 % (0-2); EOSINOPHILS 3.2 % (0-7); HEMATOCRIT 44.7 % (42.0-54.0); HEMOGLOBIN 14.2 g/dL (13.5-17.5); IMMATURE GRANULOCYTES 0.2 % (0-5); LYMPHOCYTES 24.5 % (15-50); MCH 28.7 pg (26.0-34.0); MCHC 31.8 g/dL (31.0-37.0); MCV 90.5 fL (80.0-100.0); MEAN PLATELET VOLUME 10.3 fL (7.4-10.4); MONOCYTES 8.2 % (2-11); NEUTROPHILS 63.6 % (40-80); PLATELET COUNT 288 10x3/uL (130-400); RBC 4.94 10x6/uL (4.20-6.10); RDW 14.4 % (11.5-14.5); WBC 10.6 10x3/uL (4.8-10.8)
--- NOTE | 2018-03-22 07:58 | NUR ---
REPORT RECEIVED. WILL CONTINUE WITH POC. PT CURRENTLY LYING ON RIGHT SIDE. CALL LIGHT W/I REACH. PT IS AAO AND UP AD JACE. RR EVEN AND UNLABORED ON 2L 02. L.AC PIV IS SALINE LOCKED. SPOKE WITH MASHA ON PHONE FOR 10 MINUTES ANSWERING QUESTIONS REGARDING MEDICATIONS AND PLAN OF CARE FOR PT. PT DENIES ANY FURTHER NEEDS AT THIS TIME. WILL CTM.
[2018-03-22 09:02] VITALS: BP 166/122
--- NOTE | 2018-03-22 12:11 | EC ---
PATIENT:ELVA MOSS DATE OF SERVICE: 03/18/18 SEX: M MEDICAL RECORD: [id number] DATE OF : 56 LOCATION:D.M2 D.210 AGE OF PATIENT: 57 ADMISSION DATE: 03/18/18 REFERRING PHYSICIAN: INTERPRETING PHYSICIAN: ESTELA GUSTAFSON MD ECHOCARDIOGRAM REPORT ECHO CHARGES 4 ECHO COMPLETE Date: 03/18/18 CLINICAL DIAGNOSIS: CHF ECHOCARDIOGRAPHIC MEASUREMENTS (adult normal given) AC root (d.<3.7cm) 4.1 cm LV Septum d (<1.2 cm> 1.3 cm Valve Excursion 1.9 cm LV Septum (systole) 1.6 cm Left Atria (s.<4.0cm> 5.0 cm LVPW d(<1.2cm) 1.2 cm RV (d.<2.3cm) 3.3 cm LVPW (sytole) 1.6 cm LV diastole(<5.6CM) 5.9 cm MV E-F(>70mm/sec) cm LV systole 5.0 cm LVOT Diameter 2.1 cm MV exc.(>10mm) cm Est.ejection fraction (50-75%) % DOPPLER: LVIT cm/sec A 63.0 cm/sec E 100 cm/sec LA cm/sec RVSP 47.0 mmHg LVOT 66.0 cm/sec AOP1/2T m/s Asc. Ao 104 cm/sec RVOT 54.0 cm/sec RA cm/sec PA 72.0 cm/sec AV Gradient Peak 4.4 mmHg AV Mean 2.3 mmHg AV Area 2.3 cm MV Gradient Peak 3.4 mmHg MV Mean 1.6 mmHg MV Area cm COMMENTS: Oil Field Equipment Mechanic: Bogdan PRATHER Battery Parts Assembler: 1 Dr. Gustafson TAPE# PACS Pericardial Effusion N DATE OF SERVICE: 03/18/2018 FINDINGS: 1. Left ventricular chamber size is mildly dilated. Left ventricular systolic function is ihmbklqj-wq-hwilpixm reduced. Overall ejection fraction is 25% to 30%. 2. Left atrium is enlarged at 5.0 cm. Right atrium and right ventricular chamber sizes are as well zpea-cf-hvwuowxyuy dilated. 3. Valvular structures have normal structure and motion. 4. Doppler interrogation reveals moderate mitral regurgitation and moderate ECHOCARDIOGRAM REPORT [id number] ELVA MOSS tricuspid regurgitation. No other valvular insufficiency or stenosis. Pulmonary systolic pressure is mildly elevated, estimated at 47 mmHg. 5. No evidence of pericardial effusion or left ventricular thrombus. TRANSINT:[id number] Voice Confirmation ID: [id number] DOCUMENT ID: [id number] ESTELA GUSTAFSON MD at 1211 CC: [id number] DICTATION DATE: 03/19/18 1034 NETWORK ADMIN: 03/19/18 1110 ADM IN [place] [id number] [place] [address]
--- NOTE | 2018-03-22 12:11 | OP ---
PATIENT NAME: ELVA MOSS MEDICAL RECORD: [id number] :56 LOCATION:D.M2 D.2102 ADMISSION DATE:03/18/18 SURGEON: ESTELA ARCE MD DATE OF OPERATION: 03/21/2018 DATE OF SERVICE: 03/21/2018 PROCEDURES: 1. PTCA stent RCA. 2. Selective coronary angiography. INDICATION: Angina, coronary artery disease, and cardiomyopathy. PROCEDURE IN DETAIL: After informed consent was obtained and after a detailed description of risks, benefits as well as alternative therapies, the patient elected to proceed with angiogram and angioplasty. The right radial area was prepped and draped in normal sterile fashion. Right radial artery was cannulated via modified Seldinger technique with placement of 6-Nigerien sheath. All catheters exchanged through this sheath. FINDINGS: The right coronary has 85% stenosis in the mid vessel. This was addressed with a 3.0 x 15 mm Lance stent. Result was 0% residual stenosis. OVERALL IMPRESSION: Successful percutaneous transluminal coronary angioplasty stent of the right coronary artery going from 85% initial stenosis to 0% residual. TRANSINT:[id number] Voice Confirmation ID: [id number] DOCUMENT ID: [id number] ESTELA ARCE MD at 1211 CC: [id number] DICTATION DATE: 03/21/18 1245 TRANSMITTER SUPERVISOR: 03/21/18 1250 ADM IN [place] [id number]
--- NOTE | 2018-03-22 12:11 | CN ---
PATIENT NAME:ELVA DODD MEDICAL RECORD: [id number] : 56 LOCATION:D.M2 D.2102 ADMIT DATE: 03/18/18 ACCOUNT: [id number] CONSULTING PHYSICIAN: ESTELA ARCE MD REFERRING PHYSICIAN: MANI ANDREW MD DATE OF CONSULTATION: 03/19/2018 DATE OF SERVICE: 03/19/2018 CARDIOLOGY CONSULTATION DIAGNOSES: 1. Cardiomyopathy. 2. Congestive heart failure, acute systolic dysfunction. 3. Shortness of breath, dyspnea on exertion. 4. Hypertension. 5. Hyperlipidemia. 6. Insulin-dependent diabetes. 7. Angina. HISTORY OF PRESENT ILLNESS: Mr. Dodd has multiple risk factors for coronary artery disease as mentioned above. He presents with shortness of breath and chest pain. His ejection fraction is 25% on echo. He does not have a history of a cardiomyopathy or history of heart failure. The shortness of breath has been present for approximately 3 weeks. PHYSICAL EXAMINATION: GENERAL APPEARANCE: Well-nourished, well-developed, appears stated age. Level of distress, comfortable. PSYCHIATRIC: Mental status, alert, normal affect. Orientation, oriented to time, place and person. EYES: Lids and conjunctiva, noninjected. No discharge, no pallor. ENT: Lips, teeth, gums, normal dentition. Oropharynx, no cyanosis, no pallor. NECK: Carotid arteries, bilateral normal upstroke, no bruits, no thrills. JUGULAR VEINS: No jugular venous pressure or distention. CERVICAL LYMPH NODES: Nontender, nonenlarged. THYROID: Not enlarged. Nontender. No nodules. LUNGS: Respiratory effort, unlabored. CHEST: Normal curvature. No thoracic deformity. No chest wall tenderness. Percussion, resonant. Auscultation, clear. No wheezes, no rales, no rhonchi. CARDIOVASCULAR: Precordial exam, nondisplaced. No heaves or pericardial thrills. Rate and rhythm, regular. Heart sounds, normal S1, normal S2. No S3, no gallop, no rub. Systolic murmur, not heard. Diastolic murmur, not heard. EXTREMITIES: No cyanosis, no edema. Peripheral pulses, full and equal in all extremities, except as noted. No bruits appreciated. ABDOMEN: Soft, nondistended. Normal aorta. No bruit. Nontender. No masses. Liver, nontender, no hepatomegaly. Spleen, nontender, no splenomegaly. MUSCULOSKELETAL: No joint tenderness. No joint swelling. No erythema. NEUROLOGICAL: Normal gait, normal strength, normal tone. SKIN: Warm and dry. OVERALL IMPRESSION: Cardiomyopathy, most likely this is ischemic base. Due to all his risk factors, we will proceed with coronary angiography. Further care depends upon findings of the angiography. We will start him on Lasix b.i.d. as well as Coreg. If his blood pressure tolerates, we would add Entresto as well. CONSULT REPORT [id number] ELVA DODD TRANSINT:[id number] Voice Confirmation ID: [id number] DOCUMENT ID: [id number] ESTELA ARCE MD at 1211 CC: [id number] DICTATION DATE: 03/19/18 1244 TV PRODUCTION ASSISTANT: 03/19/18 1358 ADM IN [facility] [address] [place] [address]
--- NOTE | 2018-03-22 12:11 | OP ---
PATIENT NAME: ELVA MOSS MEDICAL RECORD: [id number] :56 LOCATION:D.M2 D.2102 ADMISSION DATE:03/18/18 SURGEON: ESTELA ARCE MD DATE OF OPERATION: 03/20/2018 PROCEDURES: 1. PTCA stent LAD. 2. PTCA stent left circumflex. 3. Intravascular ultrasound. 4. Left heart catheterization. 5. Selective coronary angiography. 6. Left ventriculogram. INDICATION: Angina and coronary artery disease. PROCEDURE IN DETAIL: After informed consent was obtained and after a detailed description of risks, benefits as well as alternative therapies, the patient elected to proceed with angiogram and angioplasty. The right radial area was prepped and draped in normal sterile fashion. Right radial artery was cannulated via modified Seldinger technique with placement of 6-Romanian sheath. All catheters exchanged through this sheath. FINDINGS: Left ventriculogram was performed in standard 30-degree MCCABE view, reveals global hypokinesis throughout all segments. Overall ejection fraction estimated at 30%. SELECTIVE CORONARY ANGIOGRAPHY: 1. Left main showed no significant angiographic disease. 2. Left anterior descending has greater than 70% stenosis proximally confirmed by intravascular ultrasound. 3. Left circumflex has a 70% to 75% stenosis in the mid vessel. 4. Right coronary has 90% stenosis in the mid vessel. PTCA STENT OF THE LAD AND CIRCUMFLEX: The LAD was addressed was a 2.75 x 38 mm [place], the circumflex was a 2.5 x 15 mm Lance. Result was 0% residual stenosis. OVERALL IMPRESSION: Successful PTCA stent of the LAD and circumflex going from 70% to 75% initial stenosis to 0% residual. PLAN: PTCA stent of the RCA in the near future. TRANSINT:[id number] Voice Confirmation ID: [id number] DOCUMENT ID: [id number] ESTELA ARCE MD at 1211 CC: [id number] DICTATION DATE: 03/20/18 1643 OPERATIONS INTELLIGENCE: 03/21/18 0113 ADM IN [place] [id number] [place] [id number]
[2018-03-22 12:17] LABS: IMMUNOGLOBULIN E 124 IU/mL (0-100)
--- NOTE | 2018-03-22 12:30 | MORECARE ---
CASE MANAGEMENT DISCHARGE SUMMARY PATIENT: ELVA MOSS UNIT: [id number] ADM DATE: 03/18/18 AGE: 57 : 56 SEX: M ROOM/BED: D.2102 AUTHOR: CYRUS CHAVIS PHYSICIAN: REFERRING PHYSICIAN: MANI ANDREW MD DATE OF SERVICE: 03/22/18 Discharge Plan Patient Name: [facility]VA [facility] [facility] 1960 Planned Disposition: Home Anticipated Discharge Date: 03/22/18 Discharge Date: Expected LOS: 4 Initial Reviewer: [email or web address] Initial Review Date: 03/18/2018 Generated: 03/22/18 1:30 pm Patient Name: ELVA MOSS Page 38828 at 1230 All edits/amendments must be made on the electronic document DICTATION DATE: 03/22/18 1229 PBX SUPERVISOR: MIRA 03/22/18 1229 RPT#: [id number] DC DATE: STATUS: ADM IN [facility] [address] [place] [address] END OF REPORT
--- NOTE | 2018-03-22 12:46 | MORECARE ---
CASE MANAGEMENT DISCHARGE SUMMARY PATIENT: ELVA MOSS UNIT: [id number] ADM DATE: 03/18/18 AGE: 57 : 56 SEX: M ROOM/BED: D.2102 AUTHOR: CYRUS CHAVIS PHYSICIAN: REFERRING PHYSICIAN: MANI ANDREW MD DATE OF SERVICE: 03/22/18 Discharge Plan Patient Name: ELVA MOSS Facility: [facility]:[place] : 1960 Planned Disposition: Home Anticipated Discharge Date: 03/22/18 Discharge Date: Expected LOS: 4 Initial Reviewer: [email or web address] Initial Review Date: 03/18/2018 Generated: 03/22/18 1:46 pm DCPIA - Discharge Planning Initial Assessment Updated by [email or web address]: Jewel Wood on 03/22/18 12:38 pm * Is the patient Alert and Oriented? Yes * How many steps to enter\exit or inside your home? NONE * PCP NONE- [facility] * [facility]acy [facility] [address] * Preadmission Environment Home with Family * ADLs Independent * Equipment Nebulizer * Other Equipment NO MEDICAL EQUIPMENT PROVIDER PREFERENCE * List name and contact numbers for known caregivers / representatives who currently or will assist patient after discharge: MASHA DAMIAN, EX SPOUSE, * Verbal permission to speak to the caregivers and representatives has been obtained from the patient. Yes * Community resources currently utilized None * Please name any agencies selected above. NONE * Additional services required to return to the preadmission environment? No * Can the patient safely return to the preadmission environment? Yes * Has this patient been hospitalized within the prior 30 days at any hospital? No External Providers External Provider: [facility] Next Contact Date: 03/22/2018 Service Request Date: Service Type: Resolution: Reviewer: Comments: Last DP export: 03/22/18 11:30 am Patient Name: ELVA MOSS Page 99328 at 1246 All edits/amendments must be made on the electronic document DICTATION DATE: 03/22/18 1245 FOOD BAGGING MACHINE OPERATOR: MIRA 03/22/18 1245 RPT#: [id number] DC DATE: STATUS: ADM IN [facility] [address] [place] [address] END OF REPORT
--- NOTE | 2018-03-22 13:15 | MORECARE ---
CASE MANAGEMENT DISCHARGE SUMMARY PATIENT: ELVA MOSS UNIT: [id number] ADM DATE: 03/18/18 AGE: 57 : 56 SEX: M ROOM/BED: D.2102 AUTHOR: PARTHA,DOC PHYSICIAN: REFERRING PHYSICIAN: MANI ANDREW MD DATE OF SERVICE: 03/22/18 Discharge Plan Patient Name: ELVA MOSS Facility: [facility]:[place] : 1960 Planned Disposition: Home Anticipated Discharge Date: 03/22/18 Discharge Date: Expected LOS: 4 Initial Reviewer: [email or web address] Initial Review Date: 03/18/2018 Generated: 03/22/18 2:15 pm Comments DCP- Discharge Planning Updated by [email or web address]: Jewel Wood on 03/22/18 12:[address] Patient Name: ELVA MOSS Admission Status: ER Accout number: [id number] Admission Date: 03-18-2018 : 1960 Admission Diagnosis:SHORTNESS OF BREATH Attending: MANI ANDREW Current LOS: 4 Anticipated DC Date: 03-22-2018 Planned Disposition: Home Primary Insurance: UNINSURED DISCOUNT PLAN Discharge Planning Comments: CM RECEIVED ORDER FOR OXYGEN, NEBULIZER AND OXYGEN TESTING. CM MET WITH PT IN ROOM TO DISCUSS DISCHARGE PLANNING AND NEEDS. PT REPORTS LIVING AT HOME INDEPENDENTLY WITH HIS EX SPOUSE. PT HAS NEBULIZER AT HOME WITH NO MEDICAL EQUIPMENT PROVIDER PREFERENCE. PT HAS NO OUTSIDE SERVICES ASSISTING IN THE HOME. CM DISCUSSED AVAILABILITY OF HOME HEALTH, REHAB SERVICES AND MEDICAL EQUIPMENT. PT REPORTS HAVING NEBULIZER AT HOME AND IF HE NEEDS OXYGEN, HE IS NOT RENTING IT AND WILL "SLEEP WITH THE WINDOW OPEN." PT REPORTS HIS EX WILL PICK HIM UP FOR DISCHARGE HOME. PT REPORTS HE HAS NO INSURANCE AND HAS NOT APPLIED FOR ANY. PT REPORTS HE IS LIVING BETWEEN [place], [place] AND [place] BUT IS NOW SETTLING DOWN HERE WITH HIS EX WHO TAKES CARE OF EVERYTHING FOR HIM HE IS "NOT VERY EDUCATED." PT DIRECTED CM TO CALL HIS ES , MASHA. CM CALLED MASHA AT [phone]. MASHA HAS NOT APPLIED FOR INSURANCE PT HAS ONLY BEEN IN [place] A SHORT TIME. PT HAS JUST BEEN RELEASED FROM [facility] IN [place] WHERE HE WAS INCARCERATED ON AND OFF FOR THE PAST 20 YEARS. PT HAD A DOCTOR, INSURANCE AND "EVERYTHING" THERE. MASHA REPORTS HAVING NEBULIZER FOR PT'S USE AT HOME AND SHE WILL PAY FOR OXYGEN AND MEDICATIONS WHEN PT DISCHARGES HOME. MASHA HAS NO PREFERENCE ON OXYGEN COMPANY AND WILL ASSIST PT IN FILING FOR MEDICAID. SHE REPORTS SHE WILL HAVE TO ASSIST PT IN GETTING AN [place] ID CARD WELL HIS CERTIFICATE. CM PROVIDED CONTACT INFORMATION FOR [place] [facility], DEMOLISHED 2001, DISCUSSED LOCATION OF THE [place] DIVISION OF MOTOR VEHICLES OFFICE AND PROVIDED [facility] INFORMATION. MASHA WILL TRANSPORT PT HOME AT DISCHARGE. CM CALLED [facility], , SPOKE TO ANSON AND PROVIDED REFERRAL INFORMATION. ANSON WILL CONTACT PT'S EX SPOUSE TO ARRANGE PRIVATE PAY OXYGEN SERVICE, RENTAL IS $50 PER MONTH AND $10 PER PORTABLE. CM FAXED REFERRAL TO [employer] AT [phone]. [facility] TO DELIVER PORTABLE OXYGEN TO PT'S HOSPITAL ROOM FOR DISCHARGE HOME. [facility] TO ARRANGE HOME OXYGEN AT PT'S HOME AFTER HIS ARRIVAL THERE. PT HAS NEBULIZER, EX SPOUSE WILL PRIVATE PAY FOR OXYGEN SERVICES FROM [facility]. SPOUSE TO TRANSPORT HOME AT DISCHARGE. CM TO CONTINUE TO FOLLOW AND ASSIST NEEDED. Java J2Ee Application Developer: Jewel Wood OHPIA - Discharge Planning Initial Assessment Updated by [email or web address]: Jewel Wood on 03/22/18 12:38 pm * Is the patient Alert and Oriented? Yes * How many steps to enter\\exit or inside your home? NONE * PCP NONE- [facility] * [facility] [address] * Preadmission Environment Home with Family * ADLs Independent * Equipment Nebulizer * Other Equipment NO MEDICAL EQUIPMENT PROVIDER PREFERENCE * List name and contact numbers for known caregivers / representatives who currently or will assist patient after discharge: MASHA DAMIAN, EX SPOUSE, * Verbal permission to speak to the caregivers and representatives has been obtained from the patient. Yes * Community resources currently utilized None * Please name any agencies selected above. NONE * Additional services required to return to the preadmission environment? No * Can the patient safely return to the preadmission environment? Yes * Has this patient been hospitalized within the prior 30 days at any hospital? No Last DP export: 03/22/18 11:46 am Patient Name: ELVA MOSS Page [phone] at 1315 All edits/amendments must be made on the electronic document DICTATION DATE: 03/22/181314 INSTRUCTOR BRIDGE: MIRA 03/22/181314 RPT#: [id number] DC DATE: STATUS: ADM IN [facility] [address] [place] [address] END OF REPORT
[2018-03-22 13:48] VITALS: BP 146/107
[2018-03-22 16:38] VITALS: BP 160/96
--- NOTE | 2018-03-22 19:29 | NUR ---
EVENING ROUNDS COMPLETED. PT LYING IN BED WITH EYES OPEN, RR EVEN AND UNLABORED. OXYGEN AT 2 LITERS BY NASAL CANNULA. INTRODUCED SELF TO PT. PT ASKING ABOUT DISCHARGE ORDERED, STILL YET TO RECEIVED DISCHARGE ORDERS FROM DR ANDREW. NO S/S OF DISTRESS NOTED AT THIS TIME. BED IN LOW POSITION. CALL LIGHT IN REACH. WILL CTM.
[2018-03-22 20:00] VITALS: BP 154/91
[2018-03-22] MEDS ORDERED: PLAVIX75 MG PO (20:31)
[2018-03-22] MEDS ORDERED: COREG25 MG PO (20:32)
[2018-03-22] MEDS ORDERED: BUMEX2 MG PO (20:34)
[2018-03-22] MEDS ORDERED: PULMICORT0.5 MG/21 INH (20:38)
[2018-03-22] MEDS ORDERED: BROVANA15 MCG/2 M INH (20:41)
[2018-03-22] MEDS ORDERED: IPRAT-ALBUT 0.5-3 ML UPD (20:42)
[2018-03-22] MEDS ORDERED: ALBUTEROL SULF8.5 GM INH (20:42)
[2018-03-22] MEDS ORDERED: OMNICEF300 MG PO (21:17)
--- NOTE | 2018-03-22 21:27 | NUR ---
PT WAS SUPPOSE TO BE DISHARGED AND HAD GIVEN DAYNURSE OR TRANSPORTATION ASSISTANT ORDERS HOWEVER NOONE COMPLETED IT. PT C/O AND INQUIRING ABOUT DISCHARGING. I CALLED AND DISCUSSED WITH AND HE VOICED SORRYS AND STATES IT WAS ALREADY ORDERED. REGARDLESS IT IS NOW COMPLETED. IM VERY CONCERNED ABOUT PT TAKING HIS MEDICATIONS BUT MOST IMPORTANTLY HIS PLAVIX FOR THE NEW STENTS. PT STATES HE WILL PICK THEM UP IN THE MORNING HOWEVER THE PHARMACY IS CLOSED SO I WILL HAVE TO LEAVE THE LIST FOR SHIFT TOMORROW TO CALL IN. WE DID GO AHEAD AND PROVIDE ALL MEDICATIONS FOR TONIGHT FOR HIM. PT HAS NO INSURANCE AND PRETTY MUCH STATES HE WILL JUST DO HIS BEST. I EXPLAINED RISKS AND MY CONCERNS BUT HE IS ADAMENT ABOUT LEAVING. [facility] DID COME PROVIDE O2 TANK AND TUBING HOWEVER PT APPARENTLY WILL GET NEBULIZER STUFF TOMORROW. DISCUSSED WITH PRIMARY NURSE AND WILL HOPE FOR THE BEST.
--- NOTE | 2018-03-22 22:30 | NUR ---
LEFT AC PIV REMOVED PER DISCHARGE PROTOCOL. MINIMAL BLEEDING NOTED. BANDAGE APPLIED. PT HAS BEEN INSTRUCTED ON DISCHARGE MEDICATIONS AND THE IMPORTANCE OF TAKING HIS MEDICATIONS THEY ARE PRESCRIBED. THE PT STATES HE UNDERSTANDS THE D/C INSTRUCTIONS THEY HAVE BEEN PROVIDED.
--- NOTE | 2018-03-22 23:54 | NUR ---
PT DISCHARGE INFORMATION EXPLAINED TO PT FAMILY, FAMILY STATES UNDERSTANDING.
--- NOTE | 2018-03-22 23:57 | NUR ---
PT DISCHARGED FLOOR BY WHEELCHAIR TO PERSONAL VEHICLE WITH FAMILY WITH BELONGINGS.
--- NOTE | 2018-03-25 08:14 | MORECARE ---
CASE MANAGEMENT DISCHARGE SUMMARY PATIENT: ELVA MOSS UNIT: [id number] ADM DATE: 03/18/18 AGE: 57 : 56 SEX: M ROOM/BED: D.2102 AUTHOR: PARTHA,DOC PHYSICIAN: REFERRING PHYSICIAN: MANI ANDREW MD DATE OF SERVICE: 03/25/18 Discharge Plan Patient Name: ELVA MOSS Facility: [facility]:[place] : 1960 Planned Disposition: Home Anticipated Discharge Date: 03/22/18 Discharge Date: 03/22/2018 Expected LOS: 4 Initial Reviewer: [email or web address] Initial Review Date: 03/18/2018 Generated: 03/25/18 9:14 am Comments DCP- Discharge Planning Updated by [email or web address]: Jewel Wood on 03/22/18 12:[address] Patient Name: ELVA MOSS Admission Status: ER Accout number: [id number] Admission Date: 03-18-2018 : 1960 Admission Diagnosis:SHORTNESS OF BREATH Attending: MANI ANDREW Current LOS: 4 Anticipated DC Date: 03-22-2018 Planned Disposition: Home Primary Insurance: UNINSURED DISCOUNT PLAN Discharge Planning Comments: CM RECEIVED ORDER FOR OXYGEN, NEBULIZER AND OXYGEN TESTING. CM MET WITH PT IN ROOM TO DISCUSS DISCHARGE PLANNING AND NEEDS. PT REPORTS LIVING AT HOME INDEPENDENTLY WITH HIS EX SPOUSE. PT HAS NEBULIZER AT HOME WITH NO MEDICAL EQUIPMENT PROVIDER PREFERENCE. PT HAS NO OUTSIDE SERVICES ASSISTING IN THE HOME. CM DISCUSSED AVAILABILITY OF HOME HEALTH, REHAB SERVICES AND MEDICAL EQUIPMENT. PT REPORTS HAVING NEBULIZER AT HOME AND IF HE NEEDS OXYGEN, HE IS NOT RENTING IT AND WILL "SLEEP WITH THE WINDOW OPEN." PT REPORTS HIS EX WILL PICK HIM UP FOR DISCHARGE HOME. PT REPORTS HE HAS NO INSURANCE AND HAS NOT APPLIED FOR ANY. PT REPORTS HE IS LIVING BETWEEN [place], [place] AND [place] BUT IS NOW SETTLING DOWN HERE WITH HIS EX WHO TAKES CARE OF EVERYTHING FOR HIM HE IS "NOT VERY EDUCATED." PT DIRECTED CM TO CALL HIS ES , MASHA. CM CALLED MASHA AT [phone]. MASHA HAS NOT APPLIED FOR INSURANCE PT HAS ONLY BEEN IN [place] A SHORT TIME. PT HAS JUST BEEN RELEASED FROM [facility] IN [place] WHERE HE WAS INCARCERATED ON AND OFF FOR THE PAST 20 YEARS. PT HAD A DOCTOR, INSURANCE AND "EVERYTHING" THERE. MASHA REPORTS HAVING NEBULIZER FOR PT'S USE AT HOME AND SHE WILL PAY FOR OXYGEN AND MEDICATIONS WHEN PT DISCHARGES HOME. MASHA HAS NO PREFERENCE ON OXYGEN COMPANY AND WILL ASSIST PT IN FILING FOR MEDICAID. SHE REPORTS SHE WILL HAVE TO ASSIST PT IN GETTING AN [place] ID CARD WELL HIS CERTIFICATE. CM PROVIDED CONTACT INFORMATION FOR [place] [facility], DISCUSSED LOCATION OF THE [place] DIVISION OF MOTOR VEHICLES OFFICE AND PROVIDED [facility] INFORMATION. MASHA WILL TRANSPORT PT HOME AT DISCHARGE. CM CALLED [facility], , SPOKE TO ANSON AND PROVIDED REFERRAL INFORMATION. [facility]SON WILL CONTACT PT'S EX SPOUSE TO ARRANGE PRIVATE PAY OXYGEN SERVICE, RENTAL IS $50 PER MONTH AND $10 PER PORTABLE. CM FAXED REFERRAL TO [employer] AT [phone]. [facility] TO DELIVER PORTABLE OXYGEN TO PT'S HOSPITAL ROOM FOR DISCHARGE HOME. [facility] TO ARRANGE HOME OXYGEN AT PT'S HOME AFTER HIS ARRIVAL THERE. PT HAS NEBULIZER, EX SPOUSE WILL PRIVATE PAY FOR OXYGEN SERVICES FROM [facility]. SPOUSE TO TRANSPORT HOME AT DISCHARGE. CM TO CONTINUE TO FOLLOW AND ASSIST NEEDED. Apprentice Technician: Jewel Wood [facility] - Discharge Planning Initial Assessment Updated by [email or web address]: Jewel Wood on 03/22/18 12:38 pm * Is the patient Alert and Oriented? Yes * How many steps to enter\\exit or inside your home? NONE * PCP NONE- [facility] * [facility]acy [facility] [address] * Preadmission Environment Home with Family * ADLs Independent * Equipment Nebulizer * Other Equipment NO MEDICAL EQUIPMENT PROVIDER PREFERENCE * List name and contact numbers for known caregivers / representatives who currently or will assist patient after discharge: MASHA DAMIAN, EX SPOUSE, * Verbal permission to speak to the caregivers and representatives has been obtained from the patient. Yes * Community resources currently utilized None * Please name any agencies selected above. NONE * Additional services required to return to the preadmission environment? No * Can the patient safely return to the preadmission environment? Yes * Has this patient been hospitalized within the prior 30 days at any hospital? No Last DP export: 03/22/18 12:15 pm Patient Name: ELVA MOSS Page [phone] at 0814 All edits/amendments must be made on the electronic document DICTATION DATE: 03/25/18813 GUITAR MAKER: MIRA 03/25/18813 RPT#: [id number] DC DATE:03/22/18 STATUS: DIS IN [facility] [address] [place] [address] END OF REPORT
== END 2018-03-22 23:58 | disposition home or self-care (01) | DRG 246 ==
LOC: D.ER 06:17 → D.EDHOLD 09:57 → D.M2 09:57 → D.SDCHOLD 03-19 09:44 → D.M2 03-19 09:54
PROVIDERS: Emergency Medicine; Family Medicine; Internal Medicine Interventional Cardiology; Internal Medicine Pulmonary Disease; ADMIT Internal Medicine Nephrology
PROC: 4A023N7 Measurement of Cardiac Sampling and Pressure, Left Heart, Percutaneous Approach (ICD-10-PCS; 2018-03-20)
PROC: B2111ZZ Fluoroscopy of Multiple Coronary Arteries using Low Osmolar Contrast (ICD-10-PCS; 2018-03-20)
PROC: B2151ZZ Fluoroscopy of Left Heart using Low Osmolar Contrast (ICD-10-PCS; 2018-03-20)
PROC: B240ZZ3 Ultrasonography of Single Coronary Artery, Intravascular (ICD-10-PCS; 2018-03-20)
PROC: 027135Z Dilation of Coronary Artery, Two Arteries with Two Drug-eluting Intraluminal Devices, Percutaneous Approach (ICD-10-PCS; 2018-03-20 16:30)
PROC: 027034Z Dilation of Coronary Artery, One Artery with Drug-eluting Intraluminal Device, Percutaneous Approach (ICD-10-PCS; principal; 2018-03-21 11:55)
DX: I25.119 Atherosclerotic heart disease of native coronary artery with unspecified angina pectoris (principal); J96.01 Acute respiratory failure with hypoxia; I50.21 Acute systolic (congestive) heart failure; J18.9 Pneumonia, unspecified organism; J44.1 Chronic obstructive pulmonary disease with (acute) exacerbation; N17.9 Acute kidney failure, unspecified; J44.0 Chronic obstructive pulmonary disease with (acute) lower respiratory infection; R18.8 Other ascites; I11.0 Hypertensive heart disease with heart failure; I08.1 Rheumatic disorders of both mitral and tricuspid valves; I27.20 Pulmonary hypertension, unspecified; G47.33 Obstructive sleep apnea (adult) (pediatric); E03.9 Hypothyroidism, unspecified; E78.5 Hyperlipidemia, unspecified; E11.9 Type 2 diabetes mellitus without complications; E11.21 Type 2 diabetes mellitus with diabetic nephropathy; L40.9 Psoriasis, unspecified; F17.200 Nicotine dependence, unspecified, uncomplicated; I42.9 Cardiomyopathy, unspecified

== ENCOUNTER 2018-04-01 04:56 | Inpatient (IN) | payer MEDICAID ==
[~2018-04-01] VITALS: Ht 182.9 cm; Wt 146.5 kg
[~2018-04-01 04:56] MED LIST changes: +ALBUTEROL SULF8.5 GM INH; +ALBUTEROL1.25 MG/3 INH; +BAYER CHEWABLE81 MG PO; +BROVANA15 MCG/2 M INH; +BUMEX2 MG PO; +COREG25 MG PO; +IPRAT-ALBUT 0.5-3 ML UPD; +LIPITOR20 MG PO; +OMNICEF300 MG PO; +PLAVIX75 MG PO; +PULMICORT0.5 MG/21 INH; +SYNTHROID50 MCG PO; +VENTOLIN HFA18 GM INJ; +VITAMIN D5000 UNIT PO; +ZESTRIL40 MG PO
[2018-04-01 05:31] LABS: BASOPHILS 0.5 % (0-2); EOSINOPHILS 3.3 % (0-7); HEMATOCRIT 42.8 % (42.0-54.0); HEMOGLOBIN 13.9 g/dL (13.5-17.5); IMMATURE GRANULOCYTES 0.1 % (0-5); LYMPHOCYTES 25.6 % (15-50); MCH 28.4 pg (26.0-34.0); MCHC 32.5 g/dL (31.0-37.0); MCV 87.5 fL (80.0-100.0); MEAN PLATELET VOLUME 10.5 fL (7.4-10.4); MONOCYTES 7.4 % (2-11); NEUTROPHILS 63.1 % (40-80); PLATELET COUNT 295 10x3/uL (130-400); RBC 4.89 10x6/uL (4.20-6.10); RDW 13.9 % (11.5-14.5); WBC 9.6 10x3/uL (4.8-10.8)
[2018-04-01 05:43] LABS: APTT 29.9 SECONDS (22.8-39.4); INR 1.22 (0.85-1.17); PROTIME 14.8 SECONDS (11.6-15.0)
[2018-04-01 05:44] LABS: D-DIMER-QUANTITATIVE 0.65 ug/mLFEU (0.20-0.54)
[2018-04-01 05:57] LABS: ALBUMIN 3.3 g/dL (3.4-5.0); ALKALINE PHOSPHATASE 127 U/L (46-116); ALT (SGPT) 57 U/L (10-68); BILIRUBIN - TOTAL 0.29 mg/dL (0.2-1.3); CALC OSMOLALITY 288 mosm/kg (275-300); CALCIUM 8.9 mg/dL (8.5-10.1); CARBON DIOXIDE 28.1 mmol/L (21.0-32.0); CHLORIDE - SERUM 102 mmol/L (98-107); CREATININE - SERUM 1.4 mg/dL (0.6-1.3); GLUCOSE 134 mg/dL (74-106); POTASSIUM - SERUM 3.6 mmol/L (3.5-5.1); PROTEIN - SERUM 7.4 g/dL (6.4-8.2); SODIUM 142 mmol/L (136-145); UREA NITROGEN 24 mg/dL (7-18); eGFR NON AFRICAN AMERICAN 55 mL/min (90-120)
[2018-04-01 06:00] LABS: CKMB 1.1 U/L (0.0-3.6); CREATINE KINASE 44 UL (21-232); MAGNESIUM - SERUM 1.7 mg/dL (1.8-2.4); PRO BNP 2505 pg/mL (0-125); THYROID STIMULATING HORMONE 8.68 uIU/mL (0.36-3.74); TROPONIN-I < 0.017 ng/mL (0.000-0.060)
[2018-04-01 06:54] VITALS: BP 132/83
--- NOTE | 2018-04-01 07:27 | NUR ---
URINE OUTPUT 400 ML 0720.
[2018-04-01 07:45] VITALS: BP 118/72
--- NOTE | 2018-04-01 08:09 | NUR ---
0740 ARRIVE TO ROOM VIA WHEELCHAIR FROM ER ACCOMPANIED BY SPOUSE AND ER NURSE. AMBULATES TO BED FROM WHEELCHAIR GAIT STEADY. ALERT AND ORIENTED X4. DENIES CHEST PAIN AT THIS TIME. TAKEN TO IR FOR VQ SCAN VIA WHEELCHAIR. CONTINUE ADMISSION PROCESS UPON RETURNING BACK TO ROOM.
[2018-04-01 10:17] VITALS: BP 118/72; BMI 43.9
[2018-04-01 11:48] VITALS: BP 116/72
[2018-04-01 14:38] VITALS: Ht 182.9 cm; Wt 146.5 kg
[2018-04-01 15:36] VITALS: BP 134/89
--- NOTE | 2018-04-01 17:22 | NUR ---
ALERT AND ORIENTED X4. RESTING IN BED. SINUS RHYTHM 85 ON TELEMETRY. MAGNESIUM LAB DRAW ORDERED PER ELECTROLYTE PROTOCOL. REFUSE SCDs. USES URINAL FOR MEASURING OUTPUT. DENIES ANY NEEDS. CONTINUE PLAN OF CARE AND SAFETY PRECAUTIONS.
[2018-04-01 21:11] VITALS: BP 120/66
--- NOTE | 2018-04-01 23:03 | NUR ---
RECIEVED UP IN BED WITH SIGNIFICANT OTHER AT BEDSIDE. ALERT AND ORIENTED X4. ABD APPEARS DISTENDED. LUNG SOUNDS CLEAR BILATERALLY. ACTIVE BOWEL SOUND X4. STATES HAS A GOOD APPETITE. O2@ 2 LITERS PER N/C. IV TO LEFT AC SL.. UP AD JACE TO B/R. USES URINAL AT BEDSIDE. DENIES ANY NEEDS AT THIS TIME. WILL CONT. POC.
[2018-04-02 02:25] VITALS: BP 128/76
[2018-04-02 06:24] VITALS: BP 130/86
[2018-04-02 07:27] VITALS: BP 157/104
[2018-04-02 10:01] LABS: ANION GAP 14.7 mmol/L (8-16); CALCIUM 8.5 mg/dL (8.5-10.1); CARBON DIOXIDE 28.3 mmol/L (21.0-32.0); CREATININE - SERUM 1.4 mg/dL (0.6-1.3)
--- NOTE | 2018-04-02 10:40 | NUR ---
ALERT AND ORIENTED X4. TAKING SHOWER. LINEN CHANGED. CONTINUE PLAN OF CARE AND SAFETY PRECAUTIONS.
[2018-04-02 12:11] VITALS: BP 144/100
[2018-04-02 14:52] VITALS: BP 104/80
--- NOTE | 2018-04-02 17:07 | NUR ---
ALERT AND ORIENTED X4. SITTING UP IN BED EATING. SINUS RHYTHM ON TELEMETRY. FSBS 125, NO INSULIN REQUIRED. CONTINUES TO USE URINAL TO MEASURE OUTPUT. EXPRESSES HOPING TO GO HOME TOMORROW. DENIES ANY NEEDS. CONTINUE PLAN OF CARE AND SAFETY PRECAUTIONS.
--- NOTE | 2018-04-02 19:30 | NUR ---
RESUMING PATIENT CARE. PATIENT IS ALERT AND ORIENTED. RESPIRATIONS ARE EVEN AND UNLABORED. DENIES NEEDS AT THIS TIME. NO S/S DISTRESS. NO C/O PAIN. CALL LIGHT WITHIN REACH. WILL CPOC.
[2018-04-02 20:00] VITALS: BP 140/90
[2018-04-03 04:00] VITALS: BP 138/99
--- NOTE | 2018-04-03 07:30 | NUR ---
AQSSESSMENT DONE. DENIES NEEDS.
[2018-04-03 07:48] VITALS: BP 146/99
--- NOTE | 2018-04-03 08:37 | NUR ---
ABEL NEEDS OR C/O AT THIS TIME. CALL LIGHT IN REACH. WILL MONITOR.
[2018-04-03 11:52] VITALS: BP 144/89
--- NOTE | 2018-04-03 14:09 | NUR ---
Nutrition follow-up: Diet: ADA low sodium PO intake 100% of meals Labs reviewed Wt: 322# PO intake good; possibly home today. RDN following.
--- NOTE | 2018-04-03 14:53 | NUR ---
REFUSED FOR ABG'S TO BE DONE. POST WALK TEST
--- NOTE | 2018-04-03 14:55 | NUR ---
PATIENT REFUSED ABG DRAW TO CHECK FOR QUALIFICATION FOR HOME 02. RN NOTIFIED
[2018-04-03 15:26] VITALS: BP 188/71
--- NOTE | 2018-04-03 17:20 | MORECARE ---
CASE MANAGEMENT DISCHARGE SUMMARY PATIENT: ELAV MOSS UNIT: [id number] ADM DATE: 04/01/18 AGE: 57 : 56 SEX: M ROOM/BED: D.2122 AUTHOR: CYRUS CHAVIS PHYSICIAN: REFERRING PHYSICIAN: ESTELA ARCE MD DATE OF SERVICE: 04/03/18 Discharge Plan Patient Name: ELVA MOSS [facility] [facility] 1960 Planned Disposition: Home Anticipated Discharge Date: 04/03/18 Discharge Date: Expected LOS: 2 Initial Reviewer: [email or web address] Initial Review Date: 04/03/2018 Generated: 04/03/18 6:20 pm DCPIA - Discharge Planning Initial Assessment Updated by [email or web address]: Jewel Wood on 04/03/18 5:16 pm * Is the patient Alert and Oriented? Yes * How many steps to enter\exit or inside your home? NONE * PCP NONE - PREVIOUSLY REFERRED TO [facility] * [facility]. * Preadmission Environment Home with Family * ADLs Independent * Equipment Nebulizer Oxygen * Other Equipment HOME OXYGEN - PRIVATE RENTAL FROM [facility] * List name and contact numbers for known caregivers / representatives who currently or will assist patient after discharge: MASHA DAMIAN, EX SPOUSE, * Verbal permission to speak to the caregivers and representatives has been obtained from the patient. Yes * Community resources currently utilized None * Please name any agencies selected above. NONE * Additional services required to return to the preadmission environment? No * Can the patient safely return to the preadmission environment? Yes * Has this patient been hospitalized within the prior 30 days at any hospital? Yes Patient Name: ELVA MOSS Page 69698 at 1720 All edits/amendments must be made on the electronic document DICTATION DATE: 04/03/181719 HUMAN RESOURCES ASSOCIATE: MIRA 04/03/181719 RPT#: [id number] DC DATE: STATUS: ADM IN [facility] [address] [place] [address] END OF REPORT
--- NOTE | 2018-04-03 17:29 | MORECARE ---
CASE MANAGEMENT DISCHARGE SUMMARY PATIENT: ELVA MOSS UNIT: [id number] ADM DATE: 04/01/18 AGE: 57 : 56 SEX: M ROOM/BED: D.1592 AUTHOR: PARTHA,DOC PHYSICIAN: REFERRING PHYSICIAN: ESTELA ARCE MD DATE OF SERVICE: 04/03/18 Discharge Plan Patient Name: ELVA MOSS [facility] [facility] 1960 Planned Disposition: Home Anticipated Discharge Date: 04/03/18 Discharge Date: Expected LOS: 2 Initial Reviewer: [email or web address] Initial Review Date: 04/03/2018 Generated: 04/03/18 6:29 pm Comments DCP- Discharge Planning Updated by [email or web address]: Jewel Wood on 04/03/18 4:[address] Patient Name: ELVA MOSS Admission Status: ER Accout number: [id number] Admission Date: 04-01-2018 : 1960 Admission Diagnosis: Attending: EMMY ARCE Current LOS: 2 Anticipated DC Date: 04-03-2018 Planned Disposition: Home Primary Insurance: [place]ID [place] Discharge Planning Comments: CM RECEIVED TELEPHONE MESSAGE TO CALL MASHA DAMIAN, EX SPOUSE, . CM CALLED, RECEIVED MESSAGE MACHINE, LEFT MESSAGE ASKING FOR RETURN CALL. CM MET WITH PT IN ROOM TO DISCUSS DISCHARGE PLANNING AND NEEDS. PT REPORTS LIVING AT HOME INDEPENDENTLY WITH EX SPOUSE. PT HAS HOME OXYGEN AND NEBULIZER. PT RENTS THE OXYGEN PRIVATELY FROM [employer] HE HAS NO INSURANCE. PT HAS NO OUTSIDE SERVICES ASSISTING IN THE HOME. CM DISCUSSED AVAILABILITY OF HOME HEALTH, REHAB SERVICES AND MEDICAL EQUIPMENT. PT DENIES DISCHARGE NEEDS, REPORTS HIS EX WILL PICK HIM UP FOR DISCHARGE HOME. PT REPORTS IT IS OK TO DISCUSS HIS CARE WITH HIS EX SHE TAKES CARE OF "EVERYTHING" FOR HIM. PT DID NOT GET HIS NEBULIZER MEDICATION THAT WAS $1000. CM CALLED MASHA DAMIAN, EX SPOUSE, , DID NOT GET ANSWER. CM SPOKE TO ANTHONY OF [employer] OF [place], PT HAS BEEN APPROVED FOR [place] MEDICAID. CM PROVIDED PT WITH HIS MEDICAID NUMBER AND OFFERED OXYGEN TESTING FOR HOME OXYGEN QUALIFICATION, EXPLAINED NEED FOR ABG AND HOW THAT HIS OBTAINED FOR MEDICAID TO PAY FOR THE HOME OXYGEN. PT REPORTS AGREEMENT WITH TESTING, DENIES FURHTER NEEDS. CM RECEIVED MESSAGE THAT PT DECLINED AGB TESTING FOR HOME OXYGEN. PT'S EX ARRIVED TO HOSPITALITY HOUSE SUPERVISOR PT, EXPLAINED TO CM THAT SHE DOES NOT THINK PT NEEDS HOME OXYGEN HE WASN'T WEARING IT AT HOME ANYWAY AND THEY ARE GOING TO HAVE IT PICKED BACK UP. MASHA HAD PT'S MEDICAID NUMBER PROVIDED TO PT EARLIER AND THANKED CM FOR ASSISTANCE. CM PROVIDED DR. ARCE CLIN[facility] ADDRESS AND CLINIC CONTACT PHONE AT MASHA'S REQUEST. MASHA ASKED FOR SOMEONE TO GO OVER MEDICATIONS WITH HER FOR PT'S DISCHARGE, CM INTRODUCED PT TO PT'S BEDSIDE NURSE. PT'S SPOUSE DENIES FURHTER NEEDS AT THIS TIME. Account Support Rep: Jewel Wood DCPIA - Discharge Planning Initial Assessment Updated by [email or web address]: Jewel Wood on 04/03/18 5:16 pm * Is the patient Alert and Oriented? Yes * How many steps to enter\\exit or inside your home? NONE * PCP NONE - PREVIOUSLY REFERRED TO [facility] * [facility]. * Preadmission Environment Home with Family * ADLs Independent * Equipment Nebulizer Oxygen * Other Equipment HOME OXYGEN - PRIVATE RENTAL FROM [facility] * List name and contact numbers for known caregivers / representatives who currently or will assist patient after discharge: MASHA DAMIAN, EX SPOUSE, * Verbal permission to speak to the caregivers and representatives has been obtained from the patient. Yes * Community resources currently utilized None * Please name any agencies selected above. NONE * Additional services required to return to the preadmission environment? No * Can the patient safely return to the preadmission environment? Yes * Has this patient been hospitalized within the prior 30 days at any hospital? Yes Last DP export: 04/03/18 4:20 p Patient Name: ELVA MOSS Page [id number] at 172 All edits/amendments must be made on the electronic document DICTATION DATE: 04/03/181728 MULE TENDER: MIRA 04/03/181728 RPT#: [id number] DC DATE: STATUS: [facility] [address] [place] [address] END OF REPORT
--- NOTE | 2018-04-03 17:45 | NUR ---
DC GIVEN TO PT
--- NOTE | 2018-04-03 17:50 | NUR ---
PT TO CALL DR OFFICE IN AM FOR REFILLS PER DC NURSE
--- NOTE | 2018-04-03 18:04 | NUR ---
DC HOME PER PERSONAL CAR
--- NOTE | 2018-04-08 11:45 | DS ---
PATIENT:ELVA DODD :56 MEDICAL RECORD: [id number] DISCHARGE SUMMARY ADMISSION DATE: 04/01/18 DISCHARGE DATE: 04/03/18 DIAGNOSES: 1. Congestive heart failure, chronic systolic dysfunction. 2. Coronary artery disease. 3. Hypertension. 4. Hyperlipidemia. 5. COPD. 6. Smoking history. HOSPITAL COURSE: Mr. Dodd presents with shortness of breath, combination of COPD and congestive heart failure with pulmonary edema. He underwent IV diuresis. Symptomatology cleared. He was discharged home with no change is his medications as he is already on Bumex 2 mg b.i.d. He will follow up with [facility] as previously scheduled. TRANSINT:[id number] Voice Confirmation ID: [id number] DOCUMENT ID: [id number] ESTELA ARCE MD at 1145 CC: [id number] DICTATION DATE: 04/03/18 1548 FAMILY THERAPIST: 04/03/181921 DIS IN 04/03/18 [facility] [address] [place] [address]
== END 2018-04-03 18:04 | disposition home or self-care (01) | DRG 293 ==
LOC: D.ER 04:56 → OBSVTIME 06:24 → D.M2 06:24
PROVIDERS: Emergency Medicine; Internal Medicine Interventional Cardiology; ADMIT Internal Medicine Interventional Cardiology
DX: I11.0 Hypertensive heart disease with heart failure (principal); I50.23 Acute on chronic systolic (congestive) heart failure; I25.10 Atherosclerotic heart disease of native coronary artery without angina pectoris; E78.5 Hyperlipidemia, unspecified; J44.9 Chronic obstructive pulmonary disease, unspecified; E11.9 Type 2 diabetes mellitus without complications; I25.5 Ischemic cardiomyopathy; I08.1 Rheumatic disorders of both mitral and tricuspid valves; G47.33 Obstructive sleep apnea (adult) (pediatric); E03.9 Hypothyroidism, unspecified; Z91.19 Patient's noncompliance with other medical treatment and regimen; Z87.891 Personal history of nicotine dependence

== ENCOUNTER 2018-04-13 06:38 | Emergency (ER) | payer MEDICAID ==
[~2018-04-13] VITALS: Ht 182.9 cm; Wt 140.9 kg
[2018-04-13 06:44] VITALS: Ht 182.9 cm; Wt 140.9 kg
[2018-04-13 07:14] LABS: BASOPHILS 0.2 % (0-2); HEMATOCRIT 43.9 % (42.0-54.0); IMMATURE GRANULOCYTES 0.1 % (0-5); LYMPHOCYTES 23.5 % (15-50); MCH 27.9 pg (26.0-34.0); MCHC 31.9 g/dL (31.0-37.0); MCV 87.5 fL (80.0-100.0); MEAN PLATELET VOLUME 10.4 fL (7.4-10.4); MONOCYTES 7.2 % (2-11); PLATELET COUNT 267 10x3/uL (130-400); RBC 5.02 10x6/uL (4.20-6.10)
[2018-04-13 07:25] LABS: APTT 28.2 SECONDS (22.8-39.4); INR 1.19 (0.85-1.17); PROTIME 14.5 SECONDS (11.6-15.0)
[2018-04-13 07:29] LABS: ALBUMIN 3.3 g/dL (3.4-5.0); ALKALINE PHOSPHATASE 130 U/L (46-116); ALT (SGPT) 38 U/L (10-68); BILIRUBIN - TOTAL 0.33 mg/dL (0.2-1.3); CALC OSMOLALITY 288 mosm/kg (275-300); CALCIUM 8.7 mg/dL (8.5-10.1); CARBON DIOXIDE 27.6 mmol/L (21.0-32.0); CHLORIDE - SERUM 103 mmol/L (98-107); CREATININE - SERUM 1.4 mg/dL (0.6-1.3); GLUCOSE 126 mg/dL (74-106); POTASSIUM - SERUM 4.2 mmol/L (3.5-5.1); PROTEIN - SERUM 7.5 g/dL (6.4-8.2); SODIUM 142 mmol/L (136-145); UREA NITROGEN 23 mg/dL (7-18); eGFR NON AFRICAN AMERICAN 55 mL/min (90-120)
[2018-04-13 07:42] LABS: CKMB 0.9 U/L (0.0-3.6); CREATINE KINASE 46 UL (21-232); PRO BNP 2064 pg/mL (0-125)
[2018-04-13 07:45] LABS: TROPONIN-I < 0.017 ng/mL (0.000-0.060)
[2018-04-13 09:22] VITALS: BP 164/118
== END 2018-04-13 09:24 | disposition home or self-care (01) ==
LOC: D.ER 06:38
PROVIDERS: Family Medicine
DX: R06.02 Shortness of breath (principal); R79.89 Other specified abnormal findings of blood chemistry; E11.9 Type 2 diabetes mellitus without complications; I10 Essential (primary) hypertension

== ENCOUNTER → 2018-06-19 08:29 | Outpatient (CLI) | payer MEDICAID ==
[2018-04-13 06:44] VITALS: BMI 42.1
== END | disposition home or self-care (01) ==
LOC: D.HCCARDIO 08:29
PROVIDERS: ATTEND Internal Medicine Interventional Cardiology
DX: R06.02 Shortness of breath (principal)

== ENCOUNTER → 2018-06-19 17:11 | Outpatient (CLI) | payer MEDICAID ==
[2018-04-13 06:44] VITALS: BMI 42.1
--- NOTE | ~2018-06-19 | EC ---
PATIENT:ELVA MOSS DATE OF SERVICE: 06/19/18 SEX: M MEDICAL RECORD: [id number] DATE OF : 56 LOCATION:[facility] AGE OF PATIENT: 57 ADMISSION DATE: 06/19/18 REFERRING PHYSICIAN: INTERPRETING PHYSICIAN: ESTELA ARCE MD ECHOCARDIOGRAM REPORT ECHO CHARGES Date: CLINICAL DIAGNOSIS: ECHOCARDIOGRAPHIC MEASUREMENTS (adult normal given) AC root (d.<3.7cm) cm LV Septum d (<1.2 cm> cm Valve Excursion cm LV Septum (systole) cm Left Atria (s.<4.0cm> cm LVPW d(<1.2cm) cm RV (d.<2.3cm) cm LVPW (sytole) cm LV diastole(<5.6CM) cm MV E-F(>70mm/sec) cm LV systole cm LVOT Diameter cm MV exc.(>10mm) cm Est.ejection fraction (50-75%) % DOPPLER: LVIT cm/sec A cm/sec E cm/sec LA cm/sec RVSP mmHg LVOT cm/sec AOP1/2T m/s Asc. Ao cm/sec RVOT cm/sec RA cm/sec PA cm/sec AV Gradient Peak mmHg AV Mean mmHg AV Area cm MV Gradient Peak mmHg MV Mean mmHg MV Area cm COMMENTS: Crystal Grower: Skip Miner Blasting: MAIA# Pericardial Effusion DATE OF SERVICE: FINDINGS: 1. Left ventricular chamber size is mildly dilated. Left ventricular systolic function is preserved at 50%. 2. Left atrium is dilated at 5.1 cm. Right atrium and right ventricular chamber sizes are as well mildly dilated. 3. Valvular structures have normal structure and motion. 4. Doppler interrogation reveals mild mitral regurgitation, trace tricuspid regurgitation, no other valvular insufficiency or stenosis. ECHOCARDIOGRAM REPORT [id number] ELVA MOSS 5. No evidence of pericardial effusion or left ventricular thrombus. TRANSINT:[id number] Voice Confirmation ID: [id number] DOCUMENT ID: [id number] ESTELA ARCE MD CC: [id number] DICTATION DATE: 06/19/18 163 CHAIRMAN CEO: 06/19/18 211 REG [facility] [address] [place] [address]
[2018-06-19 18:17] LABS: CHOL - HDL RATIO 4.9 ratio (2.3-4.9); LDL-HDL RATIO 2.6 ratio (1.5-3.5)
== END | disposition home or self-care (01) ==
LOC: D.LABREF 17:11
PROVIDERS: ATTEND Internal Medicine Interventional Cardiology
DX: I25.10 Atherosclerotic heart disease of native coronary artery without angina pectoris (principal)

== ENCOUNTER 2019-10-06 07:47 | Day surgery (SDC) | payer MEDICAID ==
[~2019-10-06] VITALS: Ht 182.9 cm; Wt 148.2 kg
--- NOTE | ~2019-10-06 | HEMODYNAMI ---
PATIENT:ELVA MOSS MEDICAL RECORD: [id number] : 56 LOCATION:[facility] ADMISSION DATE: 10/06/19 Generatedon:10/06/201910:13 Patient name: ELVA MOSS Patient #: [id number] SSN: [id number] : 1960 Date of study: 10/06/2019 Page: Of Hemodynamic Procedure Report Patient Data Patient Demographics Procedure consent was obtained First Name: ELVA Gender: Male Last Name: ISA : 1960 [facility] Initial: GÓMEZ Age: 58 year(s) Patient #: [id number] Race: Unknown SSN: [id number] Additional ID: [id number] Contact details [address]: [address] [place] [address] State: [place] City: [place] Zip code: [address] Past Medical History History of disease Date Diagnosis Comments CAD Allergies: No allergy information Admission Admission Data Admission Date: 10/06/2019 Admission Time: 7:47 Arrival Date: 10/06/2019 Arrival Time: 0:00 Height (in.): 71.65 BSA: 2.61 (m2) Height (cm.): 182 BMI: 44.68 (kg/m2) Weight (lbs.): 326.29 Weight (kg.): 148 Lab Results Lab Result Date: 10/06/2019 Lab Result Time: 0:00 Biochemistry Name Units Result Min Max BUN mg/dl 24 --(----)-* 7 18 Creatinine mg/dl 1.3 --(---*)-- 0.6 1.3 eGFR ml/min 60 *-(----)-- 90 120 NONAFRICAN CBC Name Units Result Min Max Hematocrit % 40 -*(----)-- 42 54 Hemoglobin g/dl 12.9 -*(----)-- 13.5 17.5 Procedure Procedure Types Cath Procedure Diagnostic Procedure LHC LH w/Coronaries Sedation Charges Moderate Sedation up to 15 minutes Procedure Description Procedure Date Procedure Date: 10/06/2019 Procedure Start Time: 9:50 Procedure End Time: 10:11 Procedure Staff Name Function Jason Macias MD Performing Physician Elisa Clark RT Monitor Addie Medina RT Scrub Bibi Sahu RN Nurse Procedure Data Cath Procedure Fluoroscopy Diagnostic fluoroscopy Total fluoroscopy Time: 7.9 time: 7.9 min min Diagnostic fluoroscopy Total fluoroscopy dose: dose: 1921 mGy 1921 mGy Contrast Material Contrast Material Type Amount (ml) Isovue 300 98 Entry Location Entry Primary Successful Side Size Upsize Upsize Entry Closure Ferrer ccessful Closure Location (Fr) 1 (Fr) 2 (Fr) Remarks Device Remarks Radial Right 6 Fr Mechanical artery Short Compression Diagnostic catheters Device Type Used For End Catheter Placement DIAGNOSTIC Frank[place] 110cm 5 Procedure Fr catheter ([id number]) DIAGNOSTIC Pigtail 5Fr Ventriculography catheter ([id number]) DIAGNOSTIC AL1 5Fr Ventriculography catheter ([id number]) DIAGNOSTIC Pigtail 5Fr Ventriculography catheter ([id number]) Procedure Complications No complications Procedure Medications Medication Administration Route Dosage 0.9% NaCl I.V. 100 ml/hr Oxygen etCO2 Nasal cannula 2 l/min Lidocaine 2% added to field 20 Heparin Flush Bag added to field 2 bags (1000units/500ml NS) Radial Cocktail added to field 1 syringe (Verapamil 2mg/Nitro 400mcg/Heparin 1500units) Versed I.V. 2 mg Fentanyl I.V. 50 mcg Lopressor I.V. 5 mg Vasotec 2.5 mg Hemodynamics Rest BSA: 2.61 (m2) O2 Consumption: Estimated: 352.51 (ml/min) O2 Consumption indexed : Estimated:135.06 (ml/min/m) Heart Rate: 117 (bpm) Pressure Samples Time Site Value (mmHg) Purpose Heart Use Rate(bpm) 9:51 LV 168/40,33 Snapshot 42 10:04 LV 169/38,45 Snapshot 105 10:05 LV 196/39,85 EDP 97 Gradients Valve Time Site Site Mean SEP/DFP Peak To Heart Use 1 2 (mmHg) (sec/min) Peak Rate (mmHg) (bpm) Aortic 10:05 LV AO 110 Snapshots Pre Cath Intra NCS Post Cath Vital Signs Time Heart Resp SPO2 etCO2 NIBP (mmHg) Rhythm Pain Sedation Rate (ipm) (%) (mmHg) Status Level (bpm) 9:43:13 76 27 99 32.4 Measuring NSR 0 (11) 10(A) , No pain 9:44:10 79 28 98 28.6 203/137(167) NSR 0 (11) 10(A) , No pain 9:53:03 87 25 98 46.7 189/145(171) NSR 0 (11) 10(A) , No pain 9:57:46 82 25 99 46.7 204/139(153) NSR 0 (11) 10(A) , No pain 10:02:32 83 21 98 48.9 198/130(166) NSR 0 (11) 10(A) , No pain 10:07:15 84 25 98 49.7 189/105(136) NSR 0 (11) 10(A) , No pain 10:11:56 75 24 50.4 181/125(165) NSR 0 (11) 10(A) , No pain Medications Time Medication Route Dose Verified Delivered Reason Notes Effectiveness by by 9:41:34 0.9% NaCl I.V. 100 Jason Bibi used for ml/hr Cobb Luis Alberto procedure MD FERNANDEZ 9:41:41 Oxygen etCO2 2 l/min Jason Ramosa used for Nasal Cobb Luis Alberto procedure cannula MD FERNANDEZ 9:41:45 Lidocaine 2% added 20ml Jason Gomez for local to vial [facility] anesthetic field MD CLINE 9:41:50 Heparin Flush added 2 bags Jason Gomez used for Bag to [facility] procedure (1000units/500ml field MD CLINE NS) 9:41:54 Radial Cocktail added 1 Jason Jason used for (Verapamil to syringe [facility] procedure 2mg/Nitro field MD CLINE 400mcg/Heparin 1500units) 9:48:14 Versed I.V. 2 mg Jason Bibi for sedation [facility] Elva Sahu MD, RN 9:49:23 Fentanyl I.V. 50 mcg Jason Ramosa for sedation [facility] Elva Sahu MD RN 10:04:21 Lopressor I.V. 5 mg Jason Guptayla for Gilberto Luis Alberto hypertension MD FERNANDEZ 10:06:41 Vasotec I.V.P 2.5 mg [address] Bib[address] Per [facility] Elva Sahu physician MD FERNANDEZwool grower Log Time Note 9:02:38 Informed consent obtained and on chart 9:02:59 Procedure Status Elective Heart Cath (OP). 9:03:00 Time tracking: Regular hours (M-F 7:00 - 5:00) 9:03:03 Plan of Care:Hemodynamics will remain stable., Cardiac rhythm will remain stable., Comfort level will be maintained., Respiratory function will remain adequate., Patient/ family verbilizes understanding of procedure., Procedure tolerated without complication., Recovers from procedure without complications.. 9:05:39 H&P Date Dictated: 10/02/2019 Within 30 days and on chart., H&P Addendum completed by physician on day of procedure. (MUST COMPLETE FOR ALL OUTPATIENTS). 9:05:44 Patient allergic to No allergy information 9:06:34 Patient Weight : 326.29 lbs 9:06:36 Patient Height : 71.65 inches 9:06:50 Arrival Date: 10/06/2019 12:00:00 AM 9:14:58 Elisa TIRADO(R) sent for patient. Start room use. 9:15:38 Lab Result : BUN 24 mg/dl 9:15:38 Lab Result : Creatinine 1.3 mg/dl 9:15:38 Lab Result : eGFR NONAFRICAN 60 ml/min 9:15:38 Lab Result : Hemoglobin 12.9 g/dl 9:15:38 Lab Result : Hematocrit 40 % 9:28:19 Patient received from Pre/Post Procedure Room to [facility] 2 Alert and oriented. Tansferred to table in Supine position. 9:28:20 Warm blankets applied, and gavin hugger turned on for patient comfort. 9:28:20 Correct patient and procedure confirmed by team. 9:28:21 ECG and BP/O2 sat monitors applied to patient. 9:41:24 Vital chart was started 9:41:34 0.9% NaCl 100 ml/hr I.V. was administered by Bibi Sahu RN; used for procedure; Verbal order read back and verified. 9:41:41 Oxygen 2 l/min etCO2 Nasal cannula was administered by Bibi Sahu RN; used for procedure; Verbal order read back and verified. 9:41:45 Lidocaine 2% 20ml vial added to field was administered by Jason Macias MD; for local anesthetic; Verbal order read back and verified. 9:41:50 Heparin Flush Bag (1000units/500ml NS) 2 bags added to field was administered by Jason Macias MD; used for procedure; Verbal order read back and verified. 9:41:54 Radial Cocktail (Verapamil 2mg/Nitro 400mcg/Heparin 1500units) 1 syringe added to field was administered by Jason Macias MD; used for procedure; Verbal order read back and verified. 9:46:43 Baseline sample Acquired. 9:46:47 Full Disclosure recording started 9:46:50 Family in patients room. 9:46:52 Patient NPO since Midnight. 9:46:55 Is the patient allergic to Iodine/contrast media? No. 9:47:03 Was the patient premedicated? Yes 9:47:05 Is patient on blood thinner?No 9:47:08 Patient diabetic? Yes. 9:47:09 If diabetic: On Metformin? Yes 9:47:13 Snore? Yes 9:47:14 Sleep apnea? Yes 9:47:20 Airway obstruction? Yes COPD 9:47:35 Physician arrived 9:47:35 --------ALL STOP TIME OUT------ 9:47:36 Final Timeout: patient, procedure, and site verified with staff and physician. All members of the team are in agreement. 9:47:53 Right Radial & Right Groin site verified by team. 9:47:58 Fire Safety Assessment: A--An alcohol-based skin anteseptic being used preoperatively., C--Open oxygen or nitrous oxide is being used., D--An ESU, laser, or fiber-optic light is being used. 9:48:03 Physical assessment completed. ASA score P 3 - A patient with severe systemic disease as per Jason Macias MD. 9:48:14 Versed 2 mg I.V. was administered by Bibi Sahu RN; for sedation; Verbal order read back and verified. 9:49:23 Fentanyl 50 mcg I.V. was administered by Bibi Sahu RN; for sedation; Verbal order read back and verified. 9:49:46 2) 60-89 Mildly reduced kidney function, and other findings (as for stage 1) point to kidney disease. 9:50:39 Sedation plan: IV Moderate Sedation Medication:Versed, Fentanyl 9:50:47 Use device set Radial Dx or PCI 9:50:49 Procedure started. 9:50:56 Local anesthetic to right radial artery with Lidocaine 2% by Jason Macias MD.INITIAL ACCESS ONLY 9:51:08 A 6 Fr Short sheath was inserted into the Right Radial artery 9:51:41 A DIAGNOSTIC Frank[place] 110cm 5 Fr catheter ([id number]) was advanced over the wire and used for Procedure. 9:51:44 LV angiography performed. 9:51:48 LV gram done using MCCABE 9:51:56 ACIST Hand Control (31329) opened to sterile field. 9:51:56 ACIST Syringe (09621) opened to sterile field. 9:51:58 Medline Cath Pack ([id number]) opened to sterile field. 9:51:59 Bag Decanter (2002S) opened to sterile field. 9:52:01 ACIST Manifold (89451) opened to sterile field. 9:52:06 MBrace Wrist Support ([id number]) opened to sterile field. 9:52:10 EMERALD Guide Wire (502-455) opened to sterile field. 9:52:12 SHEATH 6FR RAIN (1968897) opened to sterile field. 9:52:22 RCA angiography performed. 9:53:23 Catheter removed. 9:54:35 GUIDE 5FR EBU 4.0 catheter ([id number]) opened to sterile field. 9:56:34 LCA angiography performed. 9:57:50 Catheter removed. 9:57:57 A DIAGNOSTIC Pigtail 5Fr catheter ([id number]) was advanced over the wire and used for Ventriculography. 9:58:27 Zero performed for pressure channel P1 10:01:41 unable to cross valve with pigtail 10:02:43 ROADRUNNER .035 260 glide wire (I31498) opened to sterile field. 10:03:03 A DIAGNOSTIC AL1 5Fr catheter (483650C) was advanced over the wire and used for Ventriculography.with roadrunner to cross valve 10:03:57 Catheter removed. 10:04:13 A DIAGNOSTIC Pigtail 5Fr catheter (954412G) was advanced over the wire and used for Ventriculography. 10:04:21 Lopressor 5 mg I.V. was administered by Bibi Sahu RN; for hypertension; Verbal order read back and verified. 10:04:21 LV gram done using MCCABE 10:05:29 EF : 30 % 10:06:41 Vasotec 2.5 mg I.V.P was administered by Bibi Sahu RN; Per physician; Verbal order read back and verified. 10:06:43 Catheter removed. 10:06:51 ZEPHYR LARGE TR BAND (441567) opened to sterile field. 10:07:29 Sheath removed intact; hemostasis achieved with Mechanical Compression to the Right Radial artery. 10:08:50 Procedure ended.(Physican Out) 10:09:05 Fluoroscopy time 07.90 minutes. 10:09:11 Fluoroscopy dose: 1921 mGy 10:09:11 Flurop Dose total: 1921 10:09:17 Dose Area Product 374575 mGy/cm. 10:09:25 Contrast amount:Isovue 300 98ml. 10:09:27 Maximum allowable dose exceeded? No. 10:09:28 Sharps counted by scrub and verified by R.N. 10:09:31 [place] band inflated with 10cc of air. 10:09:32 Insertion/operative site no bleeding no hematoma. 10:09:41 Post-procedure physical assessment completed. ASA score P 3 - A patient with severe systemic disease as per Jason Macias MD. 10:10:20 Post procedure rhythm: unchanged. 10:10:24 Post procedure instruction explained to patient.Patient verbalizes understanding. 10:10:35 Procedure type changed to Cath procedure, Diagnostic procedure, LHC, C w/Coronaries, Sedation Charges, Moderate Sedation up to 15 minutes 10:10:38 Procedure and supply charges have been captured, reviewed, submitted and are correct. 10:11:06 Procedure Complication : No complications 10:11:09 Vital chart was stopped 10:11:12 [facility] Findings: mild to moderate CAD (<70%) 10:11:14 See physician's report for complete and final results. 10:11:17 Report given to Pre/Post Procedure Room. 10:11:22 Patient transfered to Pre/Post Procedure Room with Stretcher. 10:11:25 Procedure ended. 10:11:25 Full Disclosure recording stopped 10:11:33 End room use (Document Last) Device Usage Item Name Manufacture Quantity Catalog Hospital Part Current Minima l Lot# / Number Charge Number Stock Stock Serial# Code DIAGNOSTIC Terumo 1 40-1158 735293 279271 366159 5 Frankfort 110cm 5 Fr catheter (447305) ACIST Hand Acist 1 64821 750761 661039 959563 5 Control Medical (28280) Systems Inc ACIST Acist 1 59965 960560 145006 376156 20 Syringe Medical (83038) Systems Inc Medline Medline 1 [id number] 797255 20292 514938 5 Cath Pack ([id number]) Bag Microtek 1 2001S 139699 56984 647095 5 Decanter Medical Inc. (2001S) ACIST Acist 1 31028 696752 924013 574026 5 Manifold Medical (01473) Systems Inc MBrace Advanced 1 140-0250-00 563845 03413 537586 5 Wrist Vascular Support Dynamics (135037964) EMERALD Cardinal 1 502-455 679140 651019 915691 5 Guide Wire Health (502455) SHEATH 6FR Cardinal 1 9068621 813707 3947190 679215 5 [facility] Health (1037266) GUIDE 5FR Medtronic 1 [id number] 890851 711982 791653 1 EBU 4.0 catheter (PQ4DFO59) DIAGNOSTIC Cardinal 1 [id number] 871764 939227 419115 5 Pigtail 5Fr Health catheter (298885S) [facility] 1 X50083 752696 458976 008888 5 .035 260 glide wire (L70579) DIAGNOSTIC Cardinal 1 [id number] 532402 612691 822576 15 AL1 5Fr Health catheter (462117A) ZEPHYR Cardinal 1 695566 897405 7460141 203295 5 LARGE TR Health BAND (439383) Signature Audit [place] Stage Time Signature Unsigned Intra-Procedure 10/06/2019 Elisa Clark 10:12:18 AM RT(R) Intra-Procedure 10/06/2019 Bibi Sahu 10:12:43 AM RN Intra-Procedure 10/06/2019 Jason Montero 10:13:18 AM Elva CLINE Signatures Performing Physician : Signature : Jason Macias MD Date : Time : Monitor : Elisa Clark Signature : RT Date : Time : Nurse : Bibi Luis Alberto RN Signature : Date : Time : [address] [place] [address]
[2019-10-06] MEDS ORDERED: PROAIR HFA8.5 G1 INH (08:35)
[2019-10-06] MEDS ORDERED: CATAPRES0.1 MG PO (08:38)
[2019-10-06 08:43] VITALS: BP 216/139; Ht 182.9 cm; Wt 148.2 kg
[2019-10-06 09:01] LABS: BASOPHILS 0.2 % (0-2); EOSINOPHILS 3.5 % (0-7); HEMOGLOBIN 12.9 g/dL (13.5-17.5); IMMATURE GRANULOCYTES 0.2 % (0-5); LYMPHOCYTES 28.4 % (15-50); MCH 29.4 pg (26.0-34.0); MCHC 32.3 g/dL (31.0-37.0); MCV 91.1 fL (80.0-100.0); MEAN PLATELET VOLUME 9.6 fL (7.4-10.4); MONOCYTES 8.1 % (2-11); NEUTROPHILS 59.6 % (40-80); PLATELET COUNT 277 10x3/uL (130-400); RBC 4.39 10x6/uL (4.20-6.10); RDW 14.3 % (11.5-14.5); WBC 9.5 10x3/uL (4.8-10.8)
[2019-10-06 09:10] LABS: CARBON DIOXIDE 27.9 mmol/L (21.0-32.0); CHOL - HDL RATIO 5.3 ratio (2.3-4.9); CREATININE - SERUM 1.3 mg/dL (0.6-1.3); LDL-HDL RATIO 2.8 ratio (1.5-3.5); POTASSIUM - SERUM 3.9 mmol/L (3.5-5.1)
--- NOTE | 2019-10-06 10:20 | NUR ---
PT REC'D TO ROOM 4 VIA STRETCHER FROM PIPE FITTER WELDING. MONITORS ESTAB, NO FAMILY AT BS AT THIS TIME. SEE HAND MOLDER AND CASTER - ALARMS ON AND C/L IN REACH.
[2019-10-06] MEDS ORDERED: ALDACTONE25 MG PO (10:29)
--- NOTE | 2019-10-06 10:35 | NUR ---
R WRIST Z BAND SITE C/D/I, NO S/S BLEEDING OR HEMATOMA. PULSES PALP WITH BRISK CAP REFILL. PT RESTING QUIETLY, RR 22, UNLAB, POX 95% ON 2L NC. ALARMS ON, C/L IN REACH.
--- NOTE | 2019-10-06 11:05 | NUR ---
ONE TIME CLONIDINE GIVEN PER MD ORDER, NO DIFFICULTY SWALLOWING. R Z BAND SITE C/D/I, NO S/S BLEEDING OR HEMATOMA. R ARM/HAND WARM WITH PALP PULSES. ALARMS ON AND C/L IN REACH.
--- NOTE | 2019-10-06 11:20 | NUR ---
R WRIST SITE C/D/I, 4CC AIR REMOVED FROM Z BAND, NO S/S BLEEDING OR SWELLING NOTED. PULSES PALP. WILL CONT CLOSE MONITORING. B/P 198/116. ALARMS ON AND C/L IN REACH.
--- NOTE | 2019-10-06 11:35 | NUR ---
TOTAL 7CC AIR REMOVED FROM Z BAND. NO S/S BLEEDING OR HEMATOMA. HAND WARM WITH PALP PULSES. AT BS. ALARMS ON AND C/L IN REACH.
--- NOTE | 2019-10-06 11:45 | NUR ---
ALL AIR REMOVED FROM Z BAND, NO S/S BLEEDING OR HEMATOMA. R ARM/HAND WARM WITH PALP PULSES. PT DENIES PAIN OR NEEDS. C/L IN REACH.
--- NOTE | 2019-10-06 12:09 | NUR ---
R WRIST SITE C/D/I. ALL DISCHARGE INSTRUCTIONS REVIEWED WITH PT AND SPOUSE, INCLUDING RESTRICTIONS, MEDS, AND F/U APPT. UNDERSTANDING VERBALIZED. PIV D/C'D INTACT, DSG APPLIED. PT ALLOWED UP TO GET DRESSED AND GO TO BR INDEPENDENTLY.
--- NOTE | 2019-10-06 12:22 | NUR ---
PT HOME MED RESP TX ORDERED - R.T. NOTIFIED.
--- NOTE | 2019-10-06 12:36 | NUR ---
UPDRAFT COMPLETE, PT REPORTS "BREATHING BETTER". POX 96% ON RA. Z BAND OFF, DSG AND ARM BOARD APPLIED, NO S/S BLEEDING OR HEMATOMA.
--- NOTE | 2019-10-06 12:45 | NUR ---
PT D/C'D VIA WC TO PRIVATE VEHICLE WITH ALL PAPERWORK AND BELONGINGS.
--- NOTE | 2019-10-07 13:36 | OP ---
PATIENT NAME: ELVA MOSS MEDICAL RECORD: [id number] :56 LOCATION:[facility] ADMISSION DATE: SURGEON: RADHA MORENO MD DATE OF OPERATION: 10/06/2019 PROCEDURE: Left heart catheterization, selective coronary angiography, right radial approach. CATHETERS: Radial sheath, Holt catheter. The procedure was well tolerated. The patient returned to the coello, sheath removed. TR band was placed. FINDINGS: Left ventriculography in 30-degree MCCABE view shows global hypokinesis, reduced EF 25% to 30%. CORONARY ANATOMY: LEFT MAIN: Left main is free of disease. LAD: Previously placed stent is widely patent. There is some otherwise only mild luminal irregularities. CIRCUMFLEX: Circumflex is free of disease. RIGHT CORONARY ARTERY: Previously placed stent is patent. No progression of iqugmiut disease. IMPRESSION: Cardiomyopathy in excess of his underlying coronary artery disease. No indication for intervention at this point. We will add loop diuretic as well as Aldactone. Consider switching LUCIANO to Entresto as an outpatient. TRANSINT:[id number] Voice Confirmation ID: [id number] DOCUMENT ID: [id number] RADHA MORENO MD at 1336 CC: [id number] DICTATION DATE: 10/06/19 1012 HUMAN RESOURCES EXECUTIVE ASSISTANT: 10/06/192044 [facility] 10/06/19 [place] [id number] [place] [address]
== END 2019-10-06 12:45 | disposition home or self-care (01) ==
LOC: D.CATH 07:47
PROVIDERS: ATTEND Internal Medicine Interventional Cardiology
DX: I25.119 Atherosclerotic heart disease of native coronary artery with unspecified angina pectoris (principal); R06.00 Dyspnea, unspecified; I10 Essential (primary) hypertension; E78.5 Hyperlipidemia, unspecified; R94.31 Abnormal electrocardiogram [ECG] [EKG]; J44.9 Chronic obstructive pulmonary disease, unspecified

== ENCOUNTER → 2020-08-05 13:50 | Outpatient (CLI) | payer MEDICAID ==
[2019-10-06 08:43] VITALS: BMI 44.3
--- NOTE | ~2020-08-05 | EC ---
PATIENT:ELVA MOSS DATE OF SERVICE: 08/05/20 SEX: M MEDICAL RECORD: [id number] DATE OF : 56 LOCATION:[facility] AGE OF PATIENT: 59 ADMISSION DATE: 08/05/20 REFERRING PHYSICIAN: INTERPRETING PHYSICIAN: RADHA MORENO MD ECHOCARDIOGRAM REPORT ECHO CHARGES 4 ECHO COMPLETE Date: 08/05/20 CLINICAL DIAGNOSIS: ASSESS EF/VALVES HX OF CARDIOMYOPATHY/LAST EF 50% ECHOCARDIOGRAPHIC MEASUREMENTS (adult normal given) AC root (d.<3.7cm) 3.6 cm LV Septum d (<1.2 cm> 1.5 cm Valve Excursion 1.7 cm LV Septum (systole) 2.2 cm Left Atria (s.<4.0cm> 4.4 cm LVPW d(<1.2cm) 1.8 cm RV (d.<2.3cm) 4.7 cm LVPW (sytole) 2.0 cm LV diastole(<5.6CM) 5.5 cm MV E-F(>70mm/sec) cm LV systole 4.3 cm LVOT Diameter 2.1 cm MV exc.(>10mm) 1.6 cm Est.ejection fraction (50-75%) % DOPPLER: LVIT cm/sec A 80.0 cm/sec E 59.0 cm/sec LA cm/sec RVSP 16 mmHg LVOT 92 cm/sec AOP1/2T m/s Asc. Ao 103 cm/sec RVOT 86 cm/sec RA cm/sec PA 106 cm/sec AV Gradient Peak 4.27 mmHg AV Mean 2.15 mmHg AV Area 3.7 cm MV Gradient Peak 3.76 mmHg MV Mean 1.65 mmHg MV Area cm COMMENTS: Manager Of Software: 2 BINA ZABALA Treatment Specialist: 3 Dr. Moya TAPE# PACS Pericardial Effusion N DATE OF SERVICE: Adequate 2D, color-flow imaging, spectral Doppler, and M-Mode FINDINGS: LVH is present. LV internal dimensions are normal. Wall motion is normal. EF is greater than or equal to 55%. Aortic valve is tricuspid. No evidence of stenosis by Doppler interrogation. Left atrium is dilated at 4.4 cm. Mitral valve shows no prolapse. Trace MR. Right-sided chambers are grossly normal. Trace TR. ECHOCARDIOGRAM REPORT [id number] ELVA MOSS TRANSINT:[id number] Voice Confirmation ID: [id number] DOCUMENT ID: [id number] RADHA MORENO MD CC: [id number] DICTATION DATE: 08/06/20919 SENIOR LABORATORY TECHNICIAN: 08/06/20 1346 DEP CLI 08/05/20 [place] [id number] [place] [id number]
[~2020-08-05 13:50] MED LIST changes: +ALDACTONE25 MG PO; +PROAIR HFA8.5 G1 INH
== END | disposition home or self-care (01) ==
LOC: D.HCCECHO 13:50
PROVIDERS: ATTEND Internal Medicine Interventional Cardiology
DX: I42.9 Cardiomyopathy, unspecified (principal)